=== PATIENT | male | born 1970 | race Caucasian/White ===

== ENCOUNTER → 2016-04-02 | Outpatient (REF) | payer BC, OTHER ==
[~2016-04-02] MED LIST: DOXY150C PO; MOTR200T44 PO; TYLE325T5 PO; ZOFR4TAB3 PO; ZOFRAN SL
== END ==
LOC: M LAB REF 21:07 → M SFHCADAM 21:07
PROVIDERS: ATTEND Family Medicine
DX: I10 Essential (primary) hypertension (principal)

== ENCOUNTER → 2016-06-12 | Outpatient (REF) | payer OTHER ==
[2016-06-12 21:06] LABS: ALBUMIN 3.9 GM/DL (3.2-5.2); ALBUMIN/GLOBULIN RATIO 1.11 (1.00-1.93); ALKALINE PHOSPHATASE 117 U/L (45-117); ALT/SGPT 75 U/L (12-78); ANION GAP 6 MEQ/L (8-16); AST/SGOT 45 U/L (15-37); BILIRUBIN,TOTAL 0.3 MG/DL (0.2-1.0); BLOOD UREA NITROGEN 12 MG/DL (7-18); CALCIUM LEVEL 8.5 MG/DL (8.5-10.1); CARBON DIOXIDE LEVEL 32 MEQ/L (21-32); CHLORIDE LEVEL 103 MEQ/L (98-107); CHOLESTEROL LEVEL 166 MG/DL (<200); CREATININE FOR GFR 1.08 MG/DL (0.70-1.30); GLOMERULAR FILTRATION RATE > 60.0 (>60); GLUCOSE, FASTING 94 MG/DL (70-105); POTASSIUM SERUM 4.4 MEQ/L (3.5-5.1); SODIUM LEVEL 141 MEQ/L (136-145); TOTAL PROTEIN 7.4 GM/DL (6.4-8.2); TRIGLYCERIDES LEVEL 498 MG/DL (<150)
== END ==
LOC: M SFHCADAM 13:43
PROVIDERS: ATTEND Family Medicine
DX: I10 Essential (primary) hypertension (principal); E66.9 Obesity, unspecified; R39.11 Hesitancy of micturition

== ENCOUNTER 2016-07-11 18:35 | Emergency (ER) | payer BC, OTHER ==
[~2016-07-11] VITALS: Ht 180.3 cm; Wt 117.0 kg
[2016-07-11 18:37] VITALS: BP 140/90
[2016-07-11] MEDS ORDERED: LISI30TA4 PO (18:46)
[2016-07-11] MEDS ORDERED: VALI5TAB PO (19:39)
[2016-07-11] MEDS ORDERED: NAPR500T PO (19:39)
== END 2016-07-11 19:56 | disposition home or self-care (01) ==
LOC: M ED 19:32
DX: S39.012A Strain of muscle, fascia and tendon of lower back, initial encounter (principal); X50.9XXA Other and unspecified overexertion or strenuous movements or postures, initial encounter; Y92.89 Other specified places as the place of occurrence of the external cause; Y93.H9 Activity, other involving exterior property and land maintenance, building and construction; Y99.0 Civilian activity done for income or pay; I10 Essential (primary) hypertension; F17.210 Nicotine dependence, cigarettes, uncomplicated; Z79.899 Other long term (current) drug therapy

== ENCOUNTER 2016-08-29 11:24 | Emergency (ER) | payer OTHER, BC ==
[~2016-08-29] VITALS: Ht 180.3 cm; Wt 114.1 kg
[~2016-08-29 11:24] MED LIST changes: +LISI30TA4 PO; +NAPR500T PO; +VALI5TAB PO
[2016-08-29] MEDS ORDERED: KETOROLAC 60 MG/2 ML VIAL (J1885) IM ONE (13:15)
--- NOTE | 2016-08-29 14:02 | REP ---
LUMBAR SPINE SERIES: Five views. HISTORY: Pain. FINDINGS: Five views of the lumbar spine show preserved vertebral body heights and normal alignment. There is degenerative disc narrowing and spur formation at L4-5 with a vacuum phenomenon consistent with moderate degenerative disc disease. Mild discogenic spurring and disc space narrowing is seen at L3-4. No fracture or collapse is seen. There is no evidence of spondylolysis or spondylolisthesis. There is some facet hypertrophy at L4-5 and L5-S1. Sacrum and SI joints are intact. Psoas margins are symmetric. IMPRESSION: Degenerative disc and facet changes at L4-5, L5-S1 and to some degree at L3-4. No acute bony abnormality. Signed by Marcelino Dockery MD 08/29/2016 02:07 P
[2016-08-29 14:31] VITALS: BP 180/100
[2016-08-29] MEDS ORDERED: CYCL10TA PO (14:37)
[2016-08-29] MEDS ORDERED: MEDR4PAK PO (14:37)
== END 2016-08-29 14:53 | disposition home or self-care (01) ==
LOC: M ED 11:24
DX: M51.36 Other intervertebral disc degeneration, lumbar region (principal); S39.012A Strain of muscle, fascia and tendon of lower back, initial encounter; I10 Essential (primary) hypertension; X58.XXXA Exposure to other specified factors, initial encounter; Y92.9 Unspecified place or not applicable; Y99.9 Unspecified external cause status; Y93.9 Activity, unspecified; Z79.899 Other long term (current) drug therapy
CPT/HCPCS: 72110; 96372; 99282; J1885; J3360

== ENCOUNTER → 2016-09-06 | Outpatient (CLI) | payer BC, OTHER ==
[~2016-09-06] MED LIST changes: +CYCL10TA PO; +MEDR4PAK PO
--- NOTE | 2016-09-06 14:08 | REP ---
Renal ultrasound: The kidneys are normal size. The right kidney measures 13.7 x 6.2 x 6.0 cm. Left kidney measures 13.8 4.8 x 5.5 cm. Renal cortical echogenicity is normal bilaterally. There is no hydronephrosis on the right on the left. There are no renal calculi, masses or cysts. 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 Bladder ultrasound: No bladder wall polyps or masses are identified. Balloon Impression: Essentially negative renal ultrasound. 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 Signed by Oj Wan MD 09/06/2016 02:00 P
== END ==
LOC: M RAD 13:30
PROVIDERS: ATTEND Family Medicine
DX: R80.9 Proteinuria, unspecified (principal)

== ENCOUNTER → 2016-10-18 | Outpatient (REF) | payer OTHER ==
[2016-10-18 15:00] LABS: INR 0.94
== END ==
LOC: M LABDRWAD 14:09
PROVIDERS: ATTEND Physical Medicine & Rehabilitation
DX: Z01.812 Encounter for preprocedural laboratory examination (principal)

== ENCOUNTER → 2016-12-13 | Outpatient (REF) | payer OTHER ==
[2016-12-13 14:47] LABS: BLOOD UREA NITROGEN 14 MG/DL (7-18); CREATININE FOR GFR 1.13 MG/DL (0.70-1.30); GLOMERULAR FILTRATION RATE > 60.0 (>60)
== END ==
LOC: M LAB REF 13:12
PROVIDERS: ATTEND Physical Medicine & Rehabilitation
DX: M48.061 Spinal stenosis, lumbar region without neurogenic claudication (principal)

== ENCOUNTER 2019-10-16 14:38 | Emergency (ER) | payer OTHER ==
[~2019-10-16] VITALS: Ht 180.3 cm; Wt 120.6 kg
[~2019-10-16 14:38] MED LIST changes: +CYCL-707 PO; -CYCL10TA PO; +NAPR-837 PO; -NAPR500T PO; +ZOFR4TAB14 PO; -ZOFR4TAB3 PO
[2019-10-16] MEDS ORDERED: METF500T13 (16:22)
[2019-10-16] MEDS ORDERED: FURO20TA2 (16:22)
[2019-10-16 16:53] LABS: BASO # 0.1 10^3/uL (0.0-0.2); BASO % 0.4 % (0.0-1.0); EOS # 0.4 10^3/uL (0.0-0.5); EOS % 3.1 % (0.0-3.0); HEMATOCRIT 43.3 % (42.0-52.0); HEMOGLOBIN 14.3 g/dl (13.5-17.5); LYMPH # 2.9 10^3/uL (1.5-5.0); MEAN CORPUSCULAR VOLUME 90.8 fl (80.0-96.0); MONO # 1.2 10^3/uL (0.0-0.8); MONO % 9.5 % (0.0-5.0); NEUTROPHILS # 8.1 10^3/uL (1.5-8.5); NEUTROPHILS % 63.5 % (36.0-66.0); PLATELET COUNT, AUTOMATED 193 10^3/uL (150-450); RED BLOOD COUNT 4.77 10^6/uL (4.30-6.10); WHITE BLOOD COUNT 12.8 10^3/uL (4.0-10.0)
[2019-10-16 17:24] LABS: BLOOD UREA NITROGEN 12 MG/DL (7-18); CALCIUM LEVEL 8.8 MG/DL (8.5-10.1); CARBON DIOXIDE LEVEL 31 MEQ/L (21-32); CHLORIDE LEVEL 102 MEQ/L (98-107); GLOMERULAR FILTRATION RATE > 60.0 (>60); GLUCOSE, FASTING 99 MG/DL (70-100); POTASSIUM SERUM 3.9 MEQ/L (3.5-5.1); SODIUM LEVEL 138 MEQ/L (136-145)
[2019-10-16 17:46] LABS: ERYTHROCYTE SEDIMENTATION RATE 48 mm/hr (0-15)
--- NOTE | 2019-10-16 18:21 | REPVR ---
PROCEDURE INFORMATION: Exam: US Duplex Right Lower Extremity Veins, Limited Exam date and time: 10/16/2019 6:00 PM Age: 49 years old Clinical indication: Pain; Swelling (edema) of limb; Lower extremity, right; Leg, upper and leg, lower; Additional info: Redness, swelling, tenderness R/O dvt TECHNIQUE: Imaging protocol: Real-time Duplex ultrasound of the Right Lower Extremity with 2-D wills scale, color Doppler flow and spectral waveform analysis with image documentation. Limited exam was focused on the right lower extremity veins. COMPARISON: No relevant prior studies available. FINDINGS: Right deep veins: Unremarkable. The common femoral, femoral and popliteal veins are patent without thrombus. Normal Doppler waveforms. Normal compressibility and/or augmentation response. Right superficial veins: Unremarkable. Saphenofemoral junction is patent without thrombus. Soft tissues: Unremarkable. IMPRESSION: No evidence of deep vein thrombosis in the right lower extremity. Electronically signed by: Diogenes Damon On 10/16/2019 18:20:28 PM
[2019-10-16 18:25] VITALS: BP 132/83
[2019-10-16] MEDS ORDERED: IBUPROFEN 800 MG TAB PO ONE (18:30)
[2019-10-16] MEDS ORDERED: CEPHALEXIN 500 MG CAP PO ONE (18:45)
[2019-10-16] MEDS ORDERED: KEFL500C17 PO (18:48)
== END 2019-10-16 19:02 | disposition home or self-care (01) ==
LOC: M ED 14:38
DX: L03.115 Cellulitis of right lower limb (principal); E11.9 Type 2 diabetes mellitus without complications; Z79.1 Long term (current) use of non-steroidal anti-inflammatories (NSAID); Z79.84 Long term (current) use of oral hypoglycemic drugs; Z79.899 Other long term (current) drug therapy; I10 Essential (primary) hypertension; F41.9 Anxiety disorder, unspecified; F17.200 Nicotine dependence, unspecified, uncomplicated

== ENCOUNTER 2020-05-03 21:23 | Inpatient (IN) | payer OTHER ==
[~2020-05-03] VITALS: Ht 180.3 cm; Wt 129.8 kg
[~2020-05-03 21:23] MED LIST changes: +FURO20TA2; +KEFL500C17 PO; +METF500T13
[2020-05-03] MEDS ORDERED: BUPR1FIL6 SL (22:11)
[2020-05-03] MEDS ORDERED: ACETAMINOPHEN TAB 650MG DOSE (2X325MG) PO ONE (22:20)
[2020-05-03] MEDS ORDERED: CEFEPIME HCL 2 GM in D5W MINI-BAG PLUS 50 ML IV ONE (22:20)
[2020-05-03 22:27] LABS: BASO # 0.1 10^3/uL (0.0-0.2); BASO % 0.3 % (0.0-1.0); EOS # 0.1 10^3/uL (0.0-0.5); EOS % 0.5 % (0.0-3.0); HEMATOCRIT 45.4 % (42.0-52.0); LYMPH # 1.2 10^3/uL (1.5-5.0); LYMPH % 6.3 % (24.0-44.0); MEAN CORPUSCULAR HEMOGLOBIN 29.4 pg (27.0-33.0); MONO # 1.4 10^3/uL (0.0-0.8); MONO % 7.4 % (2.0-8.0); NEUTROPHILS # 15.8 10^3/uL (1.5-8.5); NEUTROPHILS % 84.7 % (36.0-66.0); PLATELET COUNT, AUTOMATED 199 10^3/uL (150-450); WHITE BLOOD COUNT 18.6 10^3/uL (4.0-10.0)
[2020-05-03 22:55] LABS: ALBUMIN 3.9 GM/DL (3.2-5.2); BILIRUBIN,DIRECT 0.2 MG/DL (0.0-0.2); BILIRUBIN,TOTAL 0.8 MG/DL (0.2-1.0); C REACTIVE PROTEIN QUANTITATIV 1.04 MG/DL (0.00-0.30); CALCIUM LEVEL 9.1 MG/DL (8.5-10.1); CREATININE FOR GFR 1.35 MG/DL (0.70-1.30); GLOMERULAR FILTRATION RATE 59.8 (>60); POTASSIUM SERUM 4.5 MEQ/L (3.5-5.1); TOTAL PROTEIN 7.9 GM/DL (6.4-8.2)
[2020-05-03] MEDS ORDERED: FURO40TA2 PO (23:01)
[2020-05-03] MEDS ORDERED: LISI40TA4 PO (23:01)
[2020-05-03] MEDS ORDERED: METF-838 PO (23:01)
[2020-05-03] MEDS ORDERED: PROP10TA56 PO (23:01)
[2020-05-03] MEDS ORDERED: SUBO8MIS SL (23:01)
[2020-05-03] MEDS ORDERED: SUBO4MIS SL (23:01)
[2020-05-03] MEDS ORDERED: HYDR-3363 PO (23:01)
--- NOTE | 2020-05-03 23:03 | REPVR ---
PROCEDURE INFORMATION: Exam: CT Head Without Contrast Exam date and time: 05/03/2020 10:42 PM Age: 49 years old Clinical indication: Altered mental status/memory loss TECHNIQUE: Imaging protocol: Computed tomography of the head without contrast. Radiation optimization: All CT scans at this facility use at least one of these dose optimization techniques: automated exposure control; mA and/or kV adjustment per patient size (includes targeted exams where dose is matched to clinical indication); or iterative reconstruction. COMPARISON: No relevant prior studies available. FINDINGS: Limitations: Patient motion. Brain: No definite acute intracranial hemorrhage. No midline shift or intracranial mass effect. No cerebral edema. Cerebral ventricles: No hydrocephalus. Bones/joints: Unremarkable. No acute fracture. Paranasal sinuses: Visualized sinuses are unremarkable. No fluid levels. Mastoid air cells: Opacification of the right mastoid air cells. Soft tissues: Unremarkable. IMPRESSION: Patient motion without definite acute intracranial abnormality. Electronically signed by: Reinaldo Snyder On 05/03/2020 23:03:39 PM
--- NOTE | 2020-05-03 23:35 | REPVR ---
PROCEDURE INFORMATION: Exam: XR Chest Exam date and time: 05/03/2020 11:22 PM Age: 49 years old Clinical indication: Fever TECHNIQUE: Imaging protocol: XR of the chest Views: 1 view. COMPARISON: CR Chest, 1 view 08/25/2013 10:32 AM FINDINGS: Lungs: Unremarkable. No consolidation. Pleural spaces: Unremarkable. No pleural effusion. No pneumothorax. Heart/Mediastinum: Unremarkable. No cardiomegaly. Bones/joints: Unremarkable. IMPRESSION: No acute findings. Electronically signed by: Reinaldo Snyder On 05/03/2020 23:34:55 PM
[2020-05-03] MEDS ORDERED: LR 1,000 ML IV ONE (23:50)
[2020-05-03] MEDS ORDERED: MAALOX 30 ML SUSP *UDC PO PRN (23:50)
[2020-05-03] MEDS ORDERED: DEXTROSE 50% 50 ML SYRINGE IV PRN (23:50)
[2020-05-03] MEDS ORDERED: MOM 30ML SUSPENSION UDC PO PRN (23:50)
[2020-05-03] MEDS ORDERED: GLUCAGON INJ 1MG VIAL SC PRN (23:50)
[2020-05-03] MEDS ORDERED: GLUCOSE 4GM CHEW TABLET PO PRN (23:50)
[2020-05-03] MEDS ORDERED: VANCOMYCIN HCL 1,000 MG, VIAL MATE ADAPTER 1 EACH in NS 250 ML IV SCH (23:50)
--- NOTE | 2020-05-03 23:57 | HPEPDOC ---
[facility] Medical History & Physical Date of Admission May 03, 2020 Date of Service: May 03, 2020 Primary Care Physician: JANICE ORTEZ DO Attending Physician: MARY GRACE PONCE MD History and Physical TIME OF SERVICE: 1157 pm CHIEF COMPLAINT: malaise HISTORY OF PRESENT ILLNESS: A few hours prior to arrival in the ER this 49 yr old M suddenly felt light headed and tired. Thereafter he became short of breath and developed aching 8/10 in severity right lower leg tenderness, redness and swelling that has spread quickly. He also had fevers, chills and vomited. He had similar symptoms when he was diagnosed with cellulitis therefore he decided to come to the hospital for evaluation. He denies having any cuts or trauma affecting his RLE. According to his the patient was transiently confused but this resolved after he received meds in the ER. 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 HOME MEDICATIONS: Please see below. PHYSICAL EXAMINATION: Vital Signs Date Time Temp Pulse Resp B/P (MAP) Pulse Ox O2 Delivery O2 Flow Rate FiO2 05/03/20 21:24 100.2 130 24 119/73 (88) 93 Room Air GENERAL APPEARANCE: well nourished and developed/ listless HEENT: EOMI CARDIOVASCULAR: tachycardic / NMRG LUNGS: CTAB on RA ABDOMEN: obese MUSCULOSKELETAL: LNIDA x 4 INTEGUMENT: the anterior part of the mid-right lower leg is has an area that is very red / he is not diaphoretic NEUROLOGICAL: speech not dysarthric PSYCHIATRIC: listless / able to answer questions appropriately and follow commands LABORATORY DATA: 05/03/20 22:18 Immature Granulocyte % (Auto) 0.8, Neutrophils (%) (Auto) 84.7H, Lymphocytes (%) (Auto) 6.3L, Monocytes (%) (Auto) 7.4, Eosinophils (%) (Auto) 0.5, Basophils (%) (Auto) 0.3, Neutrophils # (Auto) 15.8H, Lymphocytes # (Auto) 1.2L, Monocytes # (Auto) 1.4H, Eosinophils # (Auto) 0.1, Basophils # (Auto) 0.1, Nucleated Red Blo od Cells % (auto) 0.0, Anion Gap 4L, Glomerular Filtration Rate 59.8L, Lactic Acid Level 1.7, Calcium Level 9.1, Total Bilirubin 0.8, Direct Bilirubin 0.2, Aspartate Amino Transf (AST/SGOT) 74H, Alanine Aminotransferase (ALT/SGPT) 92H, Alkaline Phosphatase 89, C-Reactive Protein, Quantitative 1.04H, Total Protein 7.9, Albumin 3.9, Albumin/Globulin Ratio 1.0, Amylase Level 56 05/03/20 22:24: Urine Color KIMBER, Urine Appearance HAZY, Urine pH 5.0, Urine Specific Vill[place] 1.026, Urine Protein 1+H, Urine Glucose (UA) NEGATIVE, Urine Ketones TRACEH, Urine Blood NEGATIVE, Urine Nitrite NEGATIVE, Urine Bilirubin 1+H, Urine Urobilinogen 2.0H, Urine Leukocyte Esterase NEGATIVE, Urine WBC (Auto) 4H, Urine RBC (Auto) 3, Urine Hyaline Casts (Auto) 4, Urine Bacteria (Auto) NEGATIVE, Urine Squamous Epithelial Cells 0, Urine Transitional Epithelial Cells <1, Urine Mucus (Auto) MODERATE, Urine Sperm (Auto) SMALLH IMAGING: CT head IMPRESSION: Patient motion without definite acute intracranial abnorma lity. Chest xray IMPRESSION: No acute findings. MICROBIOLOGY: Blood cx pending / Respiratory panel neg ASSESSMENT: is a 49 yr old w a hx of NIDDM, HTN, DLP, and obesity who will be admitted for management of sepsis 2/2 RLE Cellulitis and metabolic encephalopathy. PLAN: 1 Sepsis 2/2 RLE Cellulitis He has the following SIRS criteria: Temp >101 / HR >90 / / WBC >12 / RR > 20 His qSOFA score based on the presence of AMS and tachypnea is 2 = high risk His ESR is 17 & lactic acid is 1.7 ALT-70 Score to diagnose LE Cellulitis = 5 points = appropriate to treat for cellulitis His risk factors for cellulitis are obesity and toe nail fungus Plan: admit to medical floor / telemetry / target MAP at of least 65 to 70 / f/u Is and Os with target UOP of at least 0.5 ml/kg/H / f/u [id number] w target serum glucose 140-180 while acutely ill / c/w Cefazolin to cover MSSA and add Vancomycin to cover MRSA and beta hemolytic strep / switch to lactate ringers /f/u blood cx / f/u CPK, if elevated pt may need CT or MRI of limb to rule out necrotizing fasciitis/ Acetaminophen PRN for fever & pain / can f/u w Podiatry or PCP to start treatment for onychomycosis on an out pt basis 2 Metabolic Encephalopathy Likely 2/2 infection and possibly home meds Plan: frequent neurochecks /hold naloxone and Hydroxyzine / treat infection 3 PHAN Likely pre-renal due to dehydration from infection and vomiting The UA was positive for hyaline casts Plan: monitor UOP / IVF / f/u Ulytes for FEUrea / f/u renal US / hold Lasix, Lisinopril and metformin 4 Hepatocellular pattern of transaminitis Bc the LFTs are in the 100s this is likely 2/2 OROSCO Plan: trend LFTs, f/u liver US / f/u Drug screen 5. NIDDM Plan: diabetic diet / f/u accuchecks / / hypoglycemia protocol / sliding scale insulin / hold oral anti-glycemicS / f/u A1C (target A1C is <7 to 6.5% ) 6 Chronic HTN His BP is trending down Plan: hold Lisinopril and Lasix bc of PHAN / if his BP trends upwards the day time team may consider starting amlodipine until his PHAN resolves 7. Tobacco abuse Plan: Declined nicotine patch / smoking cessation education 8. Class 1 obesity He has co-existing HTN and DM which complicate his care Since his BMI s >35 w DM he is a candidate for bariatric surgery Plan: the patient can f/u w his PCP for sleep apnea screening, device sales consultant consult, to discuss staring Saxenda, which is indicated in patients with a BMI >27 with co-existing DM, HTN or dyslipidemia to help with weight control as an adjunct to exercise & referral to a Bariatric Surgeon / recommend cardiovascular exercise for 40 min 4-5 days a week DVT px w Lovenox Dispo: home after at least 2 midnights stay Home Medications Scheduled Buprenorphine HCl/Naloxone HCl (Suboxone 8 mg-2 mg Sl Film) 1 Each Film, 1 STRIP SL DAILY Buprenorphine HCl/Naloxone HCl (Suboxone 4 mg-1 mg Sl Film) 1 Each Film, 1 STRIP SL QPM TAKES AT 1700 Furosemide (Furosemide) 40 Mg Tablet, 40 MG PO DAILY Lisinopril (Lisinopril) 40 Mg Tablet, 40 MG PO DAILY Metformin HCl (Metformin HCl ER) 500 Mg Tab.er.24h, 500 MG PO BIDWM Propranolol HCl (Propranolol HCl) 10 Mg Tablet, 10 MG PO BID PATIENT STATES THAT HIS DOSE WAS INCREASED TO 20MG BID BUT NO DOCUMENTATION TO SUPPORT. Scheduled PRN Hydroxyzine HCl (Hydroxyzine HCl) 25 Mg Tablet, 25 MG PO Q4H PRN for ANXIETY Allergies Coded Allergies: No Known Allergies (Unverified , 07/11/16) A-FIB/CHADSVASC A-FIB History Current/History of A-Fib/PAF?: No Current PO Anticoag Therapy: No MARY GRACE PONCE MD May 03, 2020 23:57
[2020-05-04 00:05] LABS: RSV AMPLIFICATION NEGATIVE (NEGATIVE)
[2020-05-04 00:27] LABS: ERYTHROCYTE SEDIMENTATION RATE 17 mm/hr (0-15)
[2020-05-04] MEDS ORDERED: ceFAZolin SOD 1 GM in D5W MINI-BAG PLUS 50 ML IV SCH ×2 (01:00→03:00)
[2020-05-04 01:10] VITALS: BP 142/82
[2020-05-04] MEDS ORDERED: VANCOMYCIN HCL 1,000 MG, VIAL MATE ADAPTER 1 EACH in NS 250 ML IV ONE ×6 (02:00)
[2020-05-04 05:59] LABS: HEMOGLOBIN 13.4 g/dl (13.5-17.5); MEAN CORPUSCULAR HEMOGLOBIN 29.4 pg (27.0-33.0); MEAN CORPUSCULAR HGB CONC 32.7 g/dl (32.0-36.5); MEAN CORPUSCULAR VOLUME 89.9 fl (80.0-96.0); PLATELET COUNT, AUTOMATED 183 10^3/uL (150-450); RED BLOOD COUNT 4.56 10^6/uL (4.30-6.10)
[2020-05-04 06:00] VITALS: BP 105/80
[2020-05-04] MEDS: ceFAZolin SOD 1 GM in D5W MINI-BAG PLUS 50 ML IV SCH ×3 (06:02→21:35)
[2020-05-04] MEDS: HumaLOG INSULIN (NovoLOG) PER UNIT SC SCH ×4 (06:05→17:23)
[2020-05-04 06:16] LABS: HEMOGLOBIN A1c 5.9 %
[2020-05-04 06:21] LABS: ALBUMIN 3.3 GM/DL (3.2-5.2); ALT/SGPT 74 U/L (12-78); BLOOD UREA NITROGEN 22 MG/DL (7-18); C REACTIVE PROTEIN QUANTITATIV 5.87 MG/DL (0.00-0.30); CALCIUM LEVEL 8.8 MG/DL (8.5-10.1); CARBON DIOXIDE LEVEL 30 MEQ/L (21-32); CHLORIDE LEVEL 102 MEQ/L (98-107); CREATININE FOR GFR 1.76 MG/DL (0.70-1.30); GLUCOSE, FASTING 167 MG/DL (70-100); POTASSIUM SERUM 4.6 MEQ/L (3.5-5.1); SODIUM LEVEL 135 MEQ/L (136-145); TOTAL PROTEIN 6.7 GM/DL (6.4-8.2)
[2020-05-04] MEDS: LR 1,000 ML IV SCH ×4 (06:50→23:53)
[2020-05-04 07:08] LABS: CPK CREATINE PHOSPHOKINASE 43 U/L (39-308)
--- NOTE | 2020-05-04 07:51 | REP ---
INDICATION: RLE cellulitis r/o foreign body COMPARISON: None. TECHNIQUE: AP and lateral views of the right tibia/fibula. FINDINGS: The osseous structures and joint spaces are intact and normal. There is no evidence for acute fracture or dislocation. Surrounding soft tissues are unremarkable. No subcutaneous emphysema or radiodense foreign body. IMPRESSION: Essentially normal radiographic evaluation. No subcutaneous emphysema or foreign body identified. <Electronically signed by Michael Virk > 05/04/20 0779
[2020-05-04] MEDS: PROPRANOLOL 10 MG TAB PO SCH ×2 (08:07→21:35)
[2020-05-04] MEDS ORDERED: FUROSEMIDE 40 MG TAB PO SCH (09:00)
[2020-05-04] MEDS: ENOXAPARIN 40MG/0.4ML SYRINGE (J1650 PER 10MG) SC SCH (09:57)
[2020-05-04] MEDS ORDERED: VANCOMYCIN HCL 750 MG, VIAL MATE ADAPTER 1 EACH in NS 250 ML IV SCH (10:00)
[2020-05-04] MEDS ORDERED: VANCOMYCIN HCL 1,000 MG, VIAL MATE ADAPTER 1 EACH in NS 250 ML IV SCH ×2 (10:00→11:00)
--- NOTE | 2020-05-04 10:00 | ECGEPIP ---
[facility] - ED Test Date: 2020-05-03 Pat Name: SHILPA BLACK Department: Room: [place] [address] Gender: Male Guest Relations Associate: ZAHEER : 1970 Requested By: HATTIE Hoffman Order Number: [id number] Reading MD: Fernando Mandel Measurements Intervals [place] Rate: 113 P: 29 DE: 200 QRS: 6 QRSD: 92 T: 23 QT: 320 QTc: 438 Interpretive Statements MULTIFOCAL ATRIAL TACHYCARDIA Inferior infarct , age undetermined NO PRIORS FOR COMPARISON Electronically Signed on 05-04-2020 10:00:13 EDT by Fernando Mandel
[2020-05-04] MEDS: BUPRENORPHINE/NALOXONE 8-2MG SUBLINGUAL TABLET(SUBOXONE) SL SCH (11:10)
[2020-05-04 11:22] LABS: HEPATITIS B SURFACE ANTIGEN NEGATIVE (NEGATIVE)
[2020-05-04 11:51] LABS: HEPATITIS B CORE ANTIBODY IGM NEGATIVE (NEGATIVE); HEPATITIS C VIRUS ABY INDEX < 0.0 INDEX (<0.8)
[2020-05-04 11:53] LABS: HEPATITIS A ANTIBODY IGM NEGATIVE (NEGATIVE)
--- NOTE | 2020-05-04 12:18 | IPNPDOC ---
Text Note Date of Service The patient was seen on 05/04/20. NOTE Subjective: No acute events overnight. Pt states that he is feeling much better than he did at the time of admission. Admits to RLE redness, pain, and swelling, although better than yesterday. He c/o dry mouth and having hunger pains due to being on NPO status. Admits to nausea and chills this morning. Denies vomiting, abd pain, visual changes, headache, constipation, diarrhea, or urinary sx. Pt states that he has had cellulitis to RLE three months ago that resolved with "500 mg of an antibiotic I don't remember the name of". He was not admitted at that time. Denies any recent changes in medications. Pt states that his AMS yesterday lasted briefly and has since resolved. Objective: VITALS: See below. GENERAL: Pt is laying in bed. No acute distress. HEENT: Dry mucous membranes. EOMI. Conjunctiva and lids normal. CARDIOVASCULAR: Regular rate and rhythm. No murmurs, rubs, or gallops appreciated. RESPIRATORY: Clear to auscultation bilaterally. Good air movement. No wheezes, rales, or rhonchi noted. ABDOMEN: Tenderness to palpation to RUQ. No guarding or rebound. Normoactive bowel sounds to all four quadrants. EXTREMITY: No pitting edema noted to BLE. SKIN: Area of erythema, tenderness, and warmth to anterior R lower leg. Erythema has not spread beyond the area marked with marker and appears to have decreased slightly. NEURO: No focal neurological deficits appreciated. Pt is able to answer my questions without difficulty and with clear speech. Assessment/Plan: A few hours prior to arrival in the ER this 49 yr old M with PMH of NIDDM, HTN, DLP, and obesity who suddenly felt light headed and tired. Thereafter he became short of breath and developed aching 8/10 in severity right lower leg tenderness, redness and swelling that has spread quickly. He also had fevers, chills and vomited. He had similar symptoms when he was diagnosed with cellulitis therefore he decided to come to the hospital for evaluation. He denies having any cuts or trauma affecting his RLE. According to his the patient was transiently confused but this resolved after he received meds in the ER. He was admitted for management of sepsis 2/2 RLE cellulitis and metabolic encephalopathy. #Sepsis 2/2 RLE cellulitis vs erysipelas - The following SIRS criteria are met at the time of admission: temp>101, HR>90, WBC>12, RR>20. - At time of admission qSOFA score based on the presence of AMS and tachypnea is 2 = high risk. - ESR elevated at 17 yesterday. - Lactic acid 1.7 yesterday. - Will trend CRP every 48 hrs. - His risk factors for cellulitis are obesity, toe nail fungus, and NIDDM. - Will continue to monitor labs. - Cefazolin and Vancomycin ordered. - Blood cultures pending. - Acetaminophen PRN for fever and pain. - Will have pt f/u with PCP or podiatry regarding onychomycosis on an out pt basis. - MRSA PCR screen pending. Will d/c vancomycin if MRSA negative. #RLE Cellulitis vs erysipelas - Pt has hx of cellulitis to RLE three months ago that completely resolved after abx therapy. - MRSA PCR screen pending. Will d/c vancomycin if MRSA negative. - Blood cultures pending. - Will continue to monitor borders of erythema. #PHAN - Likely pre-renal in the setting of dehydration while on Furosemide 40 mg, Lisinopril 40 mg, and Metformin. - UA positive for hyaline casts. - Pt denies any recent changes in medications that may be causing PHAN. - Renal US ordered. - Will monitor Is&Os. - Holding Lasix, lisinopril, and metformin and will avoid other renal toxic drugs. - Continue lactated ringers. - Urine sodium and creatinine ordered. - Will continue to monitor renal functions and electrolytes. #Metabolic encephalopathy - Possibly 2/2 infection. - Will hold Hydroxyzine due to possible cause of AMS. - Frequent neuro checks. - Will continue to treat cellulitis - Resolved. Mentation nl today. #Hepatocellular pattern of transaminitis - LFTs are in the 100s. - Pt BMI is 37.9. - Transaminitis likely 2/2 OROSCO. - Will continue to trend LFTs. - Urine tox pending. #NIDDM - Pt placed on consistent carb diet. - Sliding scale insulin with hypoglycemic parameters in place. - Hgb A1c 5.9. #HTN - BP currently 105/80. - Will continue to monitor BP. - Holding lisinopril and lasix due to PHAN. - If BP trends upward may consider amlodipine. #Tobacco abuse - Declined nicotine patch. - Smoking cessation education. #Class 1 obesity - Pt BMI 37.9. Obesity complicating care. DVT prophylaxis: Lovenox 40 mg SC Daily. Disposition: Pt has cellulitis vs erysipelas to RLE with elevated WBC and fever. Also has unexplained PHAN that is currently being further worked up. Discharge pending clinical improvement. VS,Fishbone, I+O VS, Fishbone, I+O Laboratory Tests 05/03/20 22:18 05/04/20 05:30 Vital Signs Date Time Temp Pulse Resp B/P (MAP) Pulse Ox O2 Delivery O2 Flow Rate FiO2 05/04/20 06:00 99.8 84 20 105/80 (88) 93 Room Air I&O- Last 24 Hours up to 6 AM 05/04/20 06:00 Intake Total 1770 ml Output Total 0 ml Balance 1770 ml GME ATTESTATION GME ATTESTATION My faculty preceptor for this patient encounter was physically present during the encounter and was fully available. All aspects of the patient interview, examination, medical decision making process, and medical care plan development were reviewed and approved by the faculty preceptor. The faculty preceptor is aware and concurs with the plan as stated in the body of this note and will attest to such by his/her cosignature. ATTENDING NOTE I, Ravi Gusman MD, have independently examined this patient and performed my own physical exam, as well as reviewed the documentation and edited where necessary. I have discussed in detail with the resident / student the findings and plan of treatment as documented by the resident / student and edited their note. I agree with their findings and treatment plan and have edited their documentation. Ana MENON-3 May 04, 2020 12:18 RAVI GUSMAN MD May 04, 2020 14:50
--- NOTE | 2020-05-04 13:06 | REP ---
INDICATION: PHAN. COMPARISON: Comparison sonography is from a September 06, 2016.. TECHNIQUE: Urinary tract sonography. FINDINGS: Scanning at the level of the urinary bladder shows no abnormality. Renal cortical echogenicity pattern is normal bilaterally and contours are smooth. There is no evidence of hydronephrosis, cyst, mass, or calculus in either kidney. The right kidney measures 12.9 x 5.5 x 5.3 cm. Left renal dimensions are 13.5 x 5.2 x 6.1 cm. 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 No hydronephrosis. IMPRESSION: Normal urinary tract sonography. <Electronically signed by Cristobal Dockery > 05/04/20 0500
[2020-05-04] MEDS: NICOTINE 21MG/24HR 1 EA TRANSDERMAL TD PRN (15:35)
[2020-05-04] MEDS: BUPRENORPHINE/NALOXONE 2-0.5MG SUBLINGUAL TABLET(SUBOXONE) SL SCH (17:23)
[2020-05-04] MEDS: ACETAMINOPHEN TAB 650MG DOSE (2X325MG) PO PRN (21:36)
[2020-05-04 22:00] VITALS: BP 150/90
--- NOTE | 2020-05-04 22:03 | IPNPDOC ---
Text Note Date of Service The patient was seen on 05/04/20. NOTE Time 9:30pm Per d/w LOW [place] the patient's leg is more painful and swollen. PE: pt is more alert than yesterday / RLE is more edematous than yesterday and the red area is spreading #RLE Swelling / Cellulitis Plan: c/w current abx/ f/u US to r/o DVT VS,Fishbone, I+O VS, Fishbone, I+O Laboratory Tests 05/03/20 22:18 05/04/20 05:30 Vital Signs Date Time Temp Pulse Resp B/P (MAP) Pulse Ox O2 Delivery O2 Flow Rate FiO2 05/04/20 21:35 88 156/90 05/04/20 21:07 99.5 05/04/20 06:00 20 93 Room Air I&O- Last 24 Hours up to 6 AM 05/04/20 06:00 Intake Total 1770 ml Output Total 0 ml Balance 1770 ml MARY GRACE PONCE MD May 04, 2020 22:03
[2020-05-05 01:46] LABS: AMPHETAMINES LEVEL URINE NEGATIVE (NEGATIVE); BARBITURATES URINE NEGATIVE (NEGATIVE); BENZODIAZEPINES URINE NEGATIVE (NEGATIVE); CANNABINOIDS URINE NEGATIVE (NEGATIVE); COCAINE METABOLITE URINE NEGATIVE (NEGATIVE); METHADONE URINE NEGATIVE (NEGATIVE); OPIATES URINE NEGATIVE (NEGATIVE); PHENCYCLIDINE URINE NEGATIVE (NEGATIVE); SODIUM,RANDOM URINE 45 MEQ/L; UREA NITROGEN RANDOM URINE 1065 MG/DL
[2020-05-05 02:00] VITALS: BP 152/87
[2020-05-05] MEDS: LR 1,000 ML IV SCH ×2 (05:11→09:26)
[2020-05-05] MEDS: ceFAZolin SOD 1 GM in D5W MINI-BAG PLUS 50 ML IV SCH ×3 (05:12→22:01)
[2020-05-05] MEDS: ACETAMINOPHEN TAB 650MG DOSE (2X325MG) PO PRN ×2 (05:12→22:18)
[2020-05-05] MEDS ORDERED: IPRATROPIUM 0.5MG/ALBUTEROL 2.5MG INH SOL UD 3ML (DUONEB) NEB ONE (05:25)
[2020-05-05 06:00] VITALS: BP 168/90
[2020-05-05 06:20] LABS: BASO # 0.1 10^3/uL (0.0-0.2); BASO % 0.5 % (0.0-1.0); EOS # 0.2 10^3/uL (0.0-0.5); EOS % 1.2 % (0.0-3.0); HEMATOCRIT 38.5 % (42.0-52.0); HEMOGLOBIN 12.6 g/dl (13.5-17.5); LYMPH # 2.3 10^3/uL (1.5-5.0); LYMPH % 18.9 % (24.0-44.0); MEAN CORPUSCULAR HEMOGLOBIN 29.4 pg (27.0-33.0); MEAN CORPUSCULAR HGB CONC 32.7 g/dl (32.0-36.5); MEAN CORPUSCULAR VOLUME 89.7 fl (80.0-96.0); MONO # 1.1 10^3/uL (0.0-0.8); MONO % 9.2 % (2.0-8.0); NEUTROPHILS # 8.5 10^3/uL (1.5-8.5); NEUTROPHILS % 69.8 % (36.0-66.0); PLATELET COUNT, AUTOMATED 142 10^3/uL (150-450); RED BLOOD COUNT 4.29 10^6/uL (4.30-6.10); WHITE BLOOD COUNT 12.1 10^3/uL (4.0-10.0)
[2020-05-05 06:37] LABS: ALT/SGPT 51 U/L (12-78); BILIRUBIN,TOTAL 0.5 MG/DL (0.2-1.0); BLOOD UREA NITROGEN 15 MG/DL (7-18); CALCIUM LEVEL 8.3 MG/DL (8.5-10.1); CARBON DIOXIDE LEVEL 28 MEQ/L (21-32); CHLORIDE LEVEL 102 MEQ/L (98-107); GLOMERULAR FILTRATION RATE > 60.0 (>60); GLUCOSE, FASTING 91 MG/DL (70-100); POTASSIUM SERUM 4.1 MEQ/L (3.5-5.1); SODIUM LEVEL 136 MEQ/L (136-145); TOTAL PROTEIN 6.6 GM/DL (6.4-8.2)
[2020-05-05] MEDS: HumaLOG INSULIN (NovoLOG) PER UNIT SC SCH ×3 (07:30→18:00)
[2020-05-05] MEDS: BUPRENORPHINE/NALOXONE 8-2MG SUBLINGUAL TABLET(SUBOXONE) SL SCH (08:02)
[2020-05-05] MEDS: PROPRANOLOL 10 MG TAB PO SCH ×2 (08:02→20:41)
[2020-05-05] MEDS: ENOXAPARIN 40MG/0.4ML SYRINGE (J1650 PER 10MG) SC SCH (08:03)
[2020-05-05 08:59] LABS: C REACTIVE PROTEIN QUANTITATIV 9.31 MG/DL (0.00-0.30)
[2020-05-05] MEDS ORDERED: IPRATROPIUM 0.5MG/ALBUTEROL 2.5MG INH SOL UD 3ML (DUONEB) NEB PRN (10:55)
[2020-05-05] MEDS ORDERED: VANCOMYCIN HCL 1,000 MG, VIAL MATE ADAPTER 1 EACH in NS 250 ML IV ONE ×2 (11:00→12:00)
[2020-05-05] MEDS ORDERED: ISOVUE-370 76% 100ML VIAL As Ordered ONE (11:13)
[2020-05-05] MEDS ORDERED: MIRALAX *UNIT DOSE* 17GM PACKET PO PRN (12:20)
--- NOTE | 2020-05-05 12:21 | IPNPDOC ---
Date Seen The patient was seen on 05/05/20. Progress Note SUBJECTIVE: Patient was seen and examined this morning. He continues to have right leg pain although not worse from admission. He was noted to have increased redness on his right anterior catherine. Additionally the patient noted an episode of shortness of breath last night. He was given a duoneb which reportedly improved his symptoms. There were otherwise no adverse events reported OBJECTIVE PHYSICAL EXAMINATION: VITAL SIGNS: Please see below. GENERAL: Awake, alert, and oriented. Appears in no acute distress. Lying comfortably in bed. HEENT: Atraumatic, normocephalic. Eyes are nonicteric. Trachea is midline CARDIOVASCULAR: Normal S1, S2. Regular rate and rhythm. No clicks rubs or murmur s RESPIRATORY: some crackles in the right base and bilaterally diminished. Symmetric chest expansion. No wheezes, or rhonchi ABDOMINAL: Soft, nondistended. Nontender. Obese. Normoactive bowel sounds EXTREMITIES: Area of erythema of right anterior catherine. Increased erythema from previous examination. No calf swelling or pain. Skin is dry and cracked on bilateral lower extremities NEUROLOGICAL: No focal neurological deficits PSYCHOLOGICAL: Mood and affect appear appropriate LABORATORY DATA, IMAGING STUDIES, MICROBIOLOGY: Please see below. DVT prophylaxis ordered?: Lovenox ASSESSMENT AND PLAN: Patient is a 49 year old male with a past medical history significant for Diabetes mellitus type 2, chronic hypertension, dyslipidemia, and obesity who presented with right leg pain and altered mental status and found to have a right leg cellulitis and PHAN. PROBLEMS: 1. Sepsis 2/2 RLE cellulitis/erysipelas -WBC is downtrending. Patient has remained febrile. He is continued on IV fluids currently. Blood cultures negative currently. -Vancomycin was discontinued yesterday due to MRSA negative screen. However he has had increasing erythema and increasing CRP. Consider possible MRSA vs me thicillin resistant strep. Will restart vancomycin. Continue Ancef 2. RLE Cellulitis/Erysipelas -Right anterior catherine erythema consistent with cellulitis vs erysipelas. He does have dry cracked skin which could increase his risk. He may benefit from a lotion applied to his legs. -Currently continuing Ancef. Have added Vancomycin back given his worsening erythema and CRP. WBC is trending down. He does remain febrile. -CT lower extremity with IV contrast ordered to assess for worsening infec tion -Patient was noted to have increasing pain in his right lower extremity. This pain is in his anterior leg. A ultrasound was ordered to r/o DVT although this is unlikely as the pain is anterior and not surrounding the calf 3. Acute Kidney Injury -Patient presented with increased Cr. Prerenal in etiology. He had decreased oral intake in addition to taking furosemide, lisinopril and metformin. -Patient is continued on IV fluids. His Cr has improved to 0.9 today. Continuing to hold his home medications. He did receive a CT with IV contrast today and therefore anticipate that he may have a slight bump in his Cr tomorrow. Will continue IV fluids and encourage PO intake 4. Shortness of breath -Unclear what is causing his SOB. He states he gets episodes where he all of a sudden gets short of breath. Denies any feelings of palpitations. Last night he woke up feeling short of breath. He recieved a duoneb and his shortness of breath resolved. -Possible shortness of breath is related to receiving IV fluids. Will continue to monitor for now. Chest X-ray on admission was negative for any acute findings. 5. Metabolic Encephalopathy -On admission patient noted to be altered. likely secondary to infection and medications. Currently holding hydroxyzine -Mentation appears to be at baseline 6. Elevated transaminases -On admission there was slight elevation of transaminases. They have normalized. Likely secondary to Steatohepatitis. -Patient should follow-up outpatient with PCP 7. Type 2 Diabetes Mellitus -Consistent Carb diet -Sliding scale insulin with ACHS coverage -A1c is 5.9 8. Hypertension -Currently holding Lisinopril and lasix. -Have added one time dose of Norvasc this morning -Will continue to monitor 8. Tobacco Abuse -Nicotine patch daily prn 9. Obesity -Complicates care. 10. DVT prophylaxis -Lovenox DISPOSITION: Likely D/C in 24-48 hours. Pending clinical improvement. VS, I&O, 24H, [place] Vital Signs/I&O Vital Signs Date Time Temp Pulse Resp B/P (MAP) Pulse Ox O2 Delivery O2 Flow Rate FiO2 05/05/20 09:26 71 134/88 05/05/20 06:00 99.5 20 94 Room Air I&O- Last 24 Hours up to 6 AM 05/05/20 06:00 Intake Total 3330 ml Output Total 1150 ml Balance 2180 ml Laboratory Data 24H LABS Laboratory Tests 2 05/04/20 14:55: Methicillin-Resist S.aureus DNA PCR NOT DETECTED 05/04/20 16:23: Bedside Glucose (Misc Panel) 90 05/04/20 19:43: Bedside Glucose (Misc Panel) 111H 05/05/20 00:55: Urine Random Creatinine 177.0, Urine Random Sodium 45, Urine Random Urea Nitrogen 1065, Urine Opiates Screen NEGATIVE, Urine Methadone Screen NEGATIVE, Urine Barbiturates Screen NEGATIVE, Urine Phencyclidine Screen NEGATIVE, Urine Amphetamines Screen NEGATIVE, Urine Benzodiazepines Screen NEGATIVE, Urine Cocai ne Metabolite Screen NEGATIVE, Urine Cannabinoids Screen NEGATIVE 05/05/20 05:30: Immature Granulocyte % (Auto) 0.4, Neutrophils (%) (Auto) 69.8H, Lymphocytes (%) (Auto) 18.9L, Monocytes (%) (Auto) 9.2H, Eosinophils (%) (Auto) 1.2, Basophils (%) (Auto) 0.5, Neutrophils # (Auto) 8.5, Lymphocytes # (Auto) 2.3, Monocytes # (Auto) 1.1H, Eosinophils # (Auto) 0.2, Basophils # (Auto) 0.1, Nucleated Red Blood Cells % (auto) 0.0, Anion Gap 6L, Glomerular Filtration Rate > 60.0, Calci um Level 8.3L, Total Bilirubin 0.5, Aspartate Amino Transf (AST/SGOT) 31, Alanine Aminotransferase (ALT/SGPT) 51, Alkaline Phosphatase 68, C-Reactive Protein, Quantitative 9.31H, Total Protein 6.6, Albumin 3.0L, Albumin/Globulin Ratio 0.8 05/05/20 11:07: Vancomycin Level Trough 5.1L 05/05/20 11:55: Bedside Glucose (Misc Panel) 96 CBC/BMP Laboratory Tests 05/05/20 05:30 Microbiology Microbiology 05/03/20 Blood Culture - Preliminary, Resulted No growth after 24 hours . All specim... 05/03/20 Blood Culture - Preliminary, Resulted No growth after 24 hours . All specim... GME ATTESTATION GME ATTESTATION My faculty preceptor for this patient encounter was physically present during the encounter and was fully available. All aspects of the patient interview, e xamination, medical decision making process, and medical care plan development were reviewed and approved by the faculty preceptor. The faculty preceptor is aware and concurs with the plan as stated in the body of this note and will attest to such by his/her cosignature. HATTIE DAWSON DO May 05, 2020 12:21
--- NOTE | 2020-05-05 12:28 | REP ---
INDICATION: Worsening cellulitis/ CT right lower extremity with IV cont.. COMPARISON: None. TECHNIQUE: Helical scanning is acquired following the intravenous injection of 100 mL of Isovue 370. 3 mm axial images re-formatted. Coronal and sagittal MPR images are provided. FINDINGS: Digital preliminary [facility] radiographs unremarkable. Axial CT images demonstrate diffuse circumferential soft tissue edema pattern in the distal calf and an oral lateral and anteromedial subcutaneous edema in the proximal calf. There is no evidence of abscess or other fluid collection. Cortical and medullary bone density are intact and unremarkable. There is fragmented spurring at the anterior tibial apophysis which is old. There is no acute bony abnormality. No significant joint effusion is seen at the knee. No vascular abnormality is appreciated. IMPRESSION: Soft tissue edema. No abscess or localized fluid collection. No acute bony abnormality. <Electronically signed by Cristobal Dockery > 05/05/20 [id number]
[2020-05-05] MEDS: SENNA 8.6 MG TAB (SENOKOT) PO SCH ×2 (12:39→20:41)
[2020-05-05 14:00] VITALS: BP 137/86
--- NOTE | 2020-05-05 14:46 | REP ---
INDICATION: r/o DVT. COMPARISON: 10/16/2019. TECHNIQUE: Right lower extremity deep vein duplex ultrasound. FINDINGS: The deep veins demonstrate normal compression, normal Doppler color flow and normal Doppler waveforms with respiration augmentation at multiple levels from the popliteal vein to the common femoral vein. There is no right lower extremity deep vein thrombus. There are multiple enlarged right inguinal lymph nodes, the largest measuring 3.8 x 2.1 x 1.5 cm. IMPRESSION: There is no right lower extremity deep vein thrombus. There are multiple enlarged right inguinal lymph nodes. <Electronically signed by Oj Wan > 05/05/20 0009
[2020-05-05] MEDS: BUPRENORPHINE/NALOXONE 2-0.5MG SUBLINGUAL TABLET(SUBOXONE) SL SCH (17:59)
[2020-05-05] MEDS: VANCOMYCIN HCL 1,000 MG, VIAL MATE ADAPTER 1 EACH in NS 250 ML IV SCH (20:41)
[2020-05-05] MEDS ORDERED: HumaLOG INSULIN (NovoLOG) PER UNIT SC SCH (21:00)
[2020-05-05 22:00] VITALS: BP 151/79
[2020-05-05] MEDS: NICOTINE 21MG/24HR 1 EA TRANSDERMAL TD PRN (22:01)
[2020-05-06] MEDS: VANCOMYCIN HCL 1,000 MG, VIAL MATE ADAPTER 1 EACH in NS 250 ML IV SCH ×2 (03:32→12:00)
[2020-05-06] MEDS: ACETAMINOPHEN TAB 650MG DOSE (2X325MG) PO PRN (03:33)
[2020-05-06] MEDS: ceFAZolin SOD 1 GM in D5W MINI-BAG PLUS 50 ML IV SCH (05:25)
[2020-05-06 06:00] VITALS: BP 138/77
[2020-05-06 06:21] LABS: BASO # 0.1 10^3/uL (0.0-0.2); BASO % 0.6 % (0.0-1.0); EOS # 0.3 10^3/uL (0.0-0.5); EOS % 2.9 % (0.0-3.0); HEMATOCRIT 35.4 % (42.0-52.0); HEMOGLOBIN 11.8 g/dl (13.5-17.5); LYMPH # 2.2 10^3/uL (1.5-5.0); LYMPH % 25.6 % (24.0-44.0); MEAN CORPUSCULAR HEMOGLOBIN 29.6 pg (27.0-33.0); MEAN CORPUSCULAR HGB CONC 33.3 g/dl (32.0-36.5); MEAN CORPUSCULAR VOLUME 88.7 fl (80.0-96.0); MONO # 0.8 10^3/uL (0.0-0.8); MONO % 9.3 % (2.0-8.0); NEUTROPHILS # 5.2 10^3/uL (1.5-8.5); NEUTROPHILS % 61.1 % (36.0-66.0); PLATELET COUNT, AUTOMATED 141 10^3/uL (150-450); RED BLOOD COUNT 3.99 10^6/uL (4.30-6.10); WHITE BLOOD COUNT 8.6 10^3/uL (4.0-10.0)
[2020-05-06 06:42] LABS: ALBUMIN 2.7 GM/DL (3.2-5.2); ALT/SGPT 36 U/L (12-78); BILIRUBIN,TOTAL 0.2 MG/DL (0.2-1.0); BLOOD UREA NITROGEN 11 MG/DL (7-18); CARBON DIOXIDE LEVEL 27 MEQ/L (21-32); CHLORIDE LEVEL 105 MEQ/L (98-107); CREATININE FOR GFR 0.73 MG/DL (0.70-1.30); GLOMERULAR FILTRATION RATE > 60.0 (>60); GLUCOSE, FASTING 108 MG/DL (70-100); POTASSIUM SERUM 4.1 MEQ/L (3.5-5.1); SODIUM LEVEL 137 MEQ/L (136-145); TOTAL PROTEIN 6.2 GM/DL (6.4-8.2)
[2020-05-06 07:47] LABS: C REACTIVE PROTEIN QUANTITATIV 6.72 MG/DL (0.00-0.30)
[2020-05-06] MEDS: HumaLOG INSULIN (NovoLOG) PER UNIT SC SCH ×2 (08:40→12:00)
[2020-05-06] MEDS: BUPRENORPHINE/NALOXONE 8-2MG SUBLINGUAL TABLET(SUBOXONE) SL SCH (08:40)
[2020-05-06] MEDS: SENNA 8.6 MG TAB (SENOKOT) PO SCH (08:43)
[2020-05-06 08:44] VITALS: BP 138/77
[2020-05-06] MEDS: ENOXAPARIN 40MG/0.4ML SYRINGE (J1650 PER 10MG) SC SCH (08:44)
[2020-05-06] MEDS: PROPRANOLOL 10 MG TAB PO SCH (08:44)
[2020-05-06] MEDS ORDERED: CEFD1CAP8 PO (10:33)
[2020-05-06] MEDS ORDERED: DOXY-350 PO (10:33)
--- NOTE | 2020-05-06 14:32 | DS.PDOC ---
Discharge Summary General Date of Admission May 03, 2020 at 23:50 Date of Discharge 05/06/20 Attending Physician: LITO LEMON MD Discharge Summary PROCEDURES PERFORMED DURING STAY: [None]. ADMITTING DIAGNOSES: 1. Sepsis 2/2 Right leg cellulitis 2. Right leg cellulitis 3. Altered mental Status DISCHARGE DIAGNOSES: 1. Sepsis 2/2 Right leg cellulitis 2. Right leg cellulitis 3. Altered mental Status . COMPLICATIONS/CHIEF COMPLAINT: Cellulitis Of R Lower Extremity,Sepsis. HISTORY OF PRESENT ILLNESS: Patient is a 49-year-old male with past medical history significant for diabetes mellitus type 2, hypertension, dyslipidemia, chronic back pain, obesity, who presented to [facility] emergency department with a complaint of right leg pain and redness. Patient stated that he was out shopping with his when he noted some right leg pain when walking, as well as some increasing in redness and warmth. Interestingly, patient stated that when he got home there was an episode where he felt short of breath and was subsequently found to be confused. Patient's has stated that she had noticed that he was transiently confused since returning from shopping. On presentation to the emergency room the patient was vitally stable. He was tachycardic and febrile. His son deficit any leukocytosis 18.6. . He received a head CT due to his altered mental status, which was negative for any acute findings. Additionally received a chest x-ray and x-ray of his leg to rule out osteomyelitis. Patient was admitted to hospital service for further evaluation and management HOSPITAL COURSE: On evaluation in the hospital, the patient had significant erythema of his right anterior catherine, which was consistent more with an erysipelas versus a cellulitis. He was continued on vancomycin and cefazolin. The patient's cellulitis did appear to be improving. His vancomycin was discontinued due to a MRSA screen that was negative. However, the following day the patient had worsening of his erythema and swelling as well as a rising CRP. The vancomycin was then once again added. Following day, the patient had downtrending of his CRP as well as decrease in the erythema and swelling of his right lower extremity. It was felt that the patient possibly did have a MRSA infection or possibly a vancomycin-resistant strep species. During his course. He also received a extremity CT vascular ultrasound, all which were negative. His extremity CT did demonstrate some lymphadenopathy in the right groin, however, this is expected in the setting of an acute cellulitis/infection of his right lower extremity. Regarding the patient's altered mental status on presentation he was found to have acute kidney injury with a creatinine of 1.76. The patient was taking hydroxyzine. The setting of sepsis with acute kidney injury and with his medications. It is possible that he had developed some altered mental status from metabolic encephalopathy. His eye drops. He was therefore held. Etiology was acute kidney injury was likely prerenal given his sepsis. Additionally, the patient was on both lisinopril and Lasix at home. Both these medications were held while he was inpatient status. Patient did show clinical improvement was recommended for discharge home with cefdinir and doxycycline. Patient stated that he does not currently have a primary care physician and he was referred to the graduate medical education clinic to establish care. Additionally, patient is recommended to elevate his legs and to use a lotion/moisturizer to prevent further cracks in his skin that could lead to a cellulitis/erysipelas. His hydroxyzine was discontinued at discharge and may be reevaluated by his primary care physician when he establishes care. DISCHARGE MEDICATIONS: Please see below. ALLERGIES: Please see below. PHYSICAL EXAMINATION ON DISCHARGE: VITAL SIGNS: Please see below. GENERAL: Awake, alert, and oriented. Appears in no acute distress. Lying comfortably in bed. HEENT: Atraumatic, normocephalic. Eyes are nonicteric. Trachea is midline. No palpable cervical, axillary or supraclavicular lymphadenopathy CARDIOVASCULAR: Normal S1, S2. Regular rate and rhythm. No clicks rubs or murmurs RESPIRATORY: some crackles in the right base and bilaterally diminished. Symmetric chest expansion. No wheezes, or rhonchi ABDOMINAL: Soft, nondistended. Nontender. Obese. Normoactive bowel sounds EXTREMITIES: Area of erythema of right anterior catherine. Decrease from previous examination. No calf swelling or pain. Skin is dry and cracked on bilateral lower extremities NEUROLOGICAL: No focal neurological deficits PSYCHOLOGICAL: Mood and affect appear appropriate LABORATORY DATA: Please see below. IMAGING: PROCEDURE INFORMATION: Exam: CT Head Without Contrast Exam date and time: 05/03/2020 10:42 PM Age: 49 years old Clinical indication: Altered mental status/memory loss TECHNIQUE: Imaging protocol: Computed tomography of the head without contrast. Radiation optimization: All CT scans at this facility use at least one of these dose optimization techniques: automated exposure control; mA and/or kV adjustment per patient size (includes targeted exams where dose is matched to clinical indication); or iterative reconstruction. COMPARISON: No relevant prior studies available. FINDINGS: Limitations: Patient motion. Brain: No definite acute intracranial hemorrhage. No midline shift or intracranial mass effect. No cerebral edema. Cerebral ventricles: No hydrocephalus. Bones/joints: Unremarkable. No acute fracture. Paranasal sinuses: Visualized sinuses are unremarkable. No fluid levels. Mastoid air cells: Opacification of the right mastoid air cells. Soft tissues: Unremarkable. IMPRESSION: Patient motion without definite acute intracranial abnormality. Electronically signed by: Reinaldo Snyder On 05/03/2020 23:03:39 PM PROCEDURE INFORMATION: Exam: XR Chest Exam date and time: 05/03/2020 11:22 PM Age: 49 years old Clinical indication: Fever TECHNIQUE: Imaging protocol: XR of the chest Views: 1 view. COMPARISON: CR Chest, 1 view 08/25/2013 10:32 AM FINDINGS: Lungs: Unremarkable. No consolidation. Pleural spaces: Unremarkable. No pleural effusion. No pneumothorax. Heart/Mediastinum: Unremarkable. No cardiomegaly. Bones/joints: Unremarkable. IMPRESSION: No acute findings. Electronically signed by: Reinaldo Snyder On 05/03/2020 23:34:55 PM DD: REINALDO SNYDER MD 05/03/202321 DT: HARISH 05/03/202333 DS: SACHI 05/03/202333 INDICATION: RLE cellulitis r/o foreign body COMPARISON: None. TECHNIQUE: AP and lateral views of the right tibia/fibula. FINDINGS: The osseous structures and joint spaces are intact and normal. There is no evidence for acute fracture or dislocation. Surrounding soft tissues are unremarkable. No subcutaneous emphysema or radiodense foreign body. IMPRESSION: Essentially normal radiographic evaluation. No subcutaneous emphysema or foreign body identified. <Electronically signed by Michael Virk > 05/04/20 0748 INDICATION: PHAN. COMPARISON: Comparison sonography is from a September 06, 2016.. TECHNIQUE: Urinary tract sonography. FINDINGS: Scanning at the level of the urinary bladder shows no abnormality. Renal cortical echogenicity pattern is normal bilaterally and contours are smooth. There is no evidence of hydronephrosis, cyst, mass, or calculus in either kid onelia. The right kidney measures 12.9 x 5.5 x 5.3 cm. Left renal dimensions are 13.5 x 5.2 x 6.1 cm. 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 No hydronephrosis. IMPRESSION: Normal urinary tract sonography. <Electronically signed by Cristobal Dockery > 05/04/20 1303 INDICATION: r/o DVT. COMPARISON: 10/16/2019. TECHNIQUE: Right lower extremity deep vein duplex ultrasound. FINDINGS: The deep veins demonstrate normal compression, normal Doppler color flow and normal Doppler waveforms with respiration augmentation at multiple levels from the popliteal vein to the common femoral vein. There is no right lower extremity deep vein thrombus. There are multiple enlarged right inguinal lymph nodes, the largest measuring 3.8 x 2.1 x 1.5 cm. IMPRESSION: There is no right lower extremity deep vein thrombus. There are multiple enlarged right inguinal lymph nodes. <Electronically signed by Oj Wan > 05/05/20 1443 INDICATION: Worsening cellulitis/ CT right lower extremity with IV cont.. COMPARISON: None. TECHNIQUE: Helical scanning is acquired following the intravenous injection of 100 mL of Isovue 370. 3 mm axial images re-formatted. Coronal and sagittal MPR images are provided. FINDINGS: Digital preliminary pilates coordinator radiographs unremarkable. Axial CT images demonstrate diffuse circumferential soft tissue edema pattern in the distal calf and an oral lateral and anteromedial subcutaneous edema in the proximal calf. There is no evidence of abscess or other fluid collection. Cortical and medullary bone density are intact and unremarkable. There is fragmented spurring at the anterior tibial apophysis which is old. There is no acute bony abnormality. No significant joint effusion is seen at the knee. No vascular abnormality is appreciated. IMPRESSION: Soft tissue edema. No abscess or localized fluid collection. No acute bony abnormality. <Electronically signed by Cristobal Dockery > 05/05/20 1224 PROGNOSIS: Good ACTIVITY: [As tolerated]. DIET: 2 g sodium and consistent carbohydrate DISCHARGE PLAN: Patient is to be discharged home. He has been referred to the [facility] clinic to establish care. He is a continue doxycycline and Cefdinir for 7 days. . He is to elevate his feet at home. Patient instructed to lotion and moisturize his legs to prevent further skin cracking. DISPOSITION: 01 Home, Self-Care. DISCHARGE INSTRUCTIONS: 1. Continue doxycycline and cefdinir for 7 days 2. Referral sent to [facility] education clinic to establish care DISCHARGE CONDITION: [Stable]. TIME SPENT ON DISCHARGE: Greater than 40 minutes. Vital Signs/I&Os Vital Signs Date Time Temp Pulse Resp B/P (MAP) Pulse Ox O2 Delivery O2 Flow Rate FiO2 05/06/20 08:44 62 138/77 05/06/20 06:00 98.8 18 95 Room Air I&O- Last 24 Hours up to 6 AM 05/06/20 06:00 Intake Total 3660 ml Output Total 2350 ml Balance 1310 ml Laboratory Data Labs 24H Laboratory Tests 2 05/05/20 16:33: Bedside Glucose (Misc Panel) 112H 05/05/20 19:31: Bedside Glucose (Misc Panel) 118H 05/06/20 05:54: Immature Granulocyte % (Auto) 0.5, Neutrophils (%) (Auto) 61.1, Lymphocytes (%) (Auto) 25.6, Monocytes (%) (Auto) 9.3H, Eosinophils (%) (Auto) 2.9, Basophils (%) (Auto) 0.6, Neutrophils # (Auto) 5.2, Lymphocytes # (Auto) 2.2, Monocytes # (Auto) 0.8, Eosinophils # (Auto) 0.3, Basophils # (Auto) 0.1, Nucleated Red Blood Cells % (auto) 0.0, Anion Gap 5L, Glomerular Filtration Rate > 60.0, Calcium Level 8.0L, Total Bilirubin 0.2#, Aspartate Amino Transf (AST/SGOT) 25, Alanine Aminotransferase (ALT/SGPT) 36, Alkaline Phosphatase 72, C-Reactive Pr otein, Quantitative 6.72H, Total Protein 6.2L, Albumin 2.7L, Albumin/Globulin Ratio 0.8 05/06/20 11:37: Bedside Glucose (Misc Panel) 124H CBC/BMP Laboratory Tests 05/06/20 05:54 FSBS Laboratory Tests Test 05/05/20 16:33 05/05/20 19:31 05/06/20 11:37 Range/Units Bedside Glucose (Misc Panel) 112 118 124 70-105 MG/DL Microbiology Microbiology 05/03/20 Blood Culture - Preliminary, Resulted No Growth after 48 hours. All Specime... 05/03/20 Blood Culture - Preliminary, Resulted No Growth after 48 hours. All Specime... Discharge Medications Scheduled Buprenorphine HCl/Naloxone HCl (Suboxone 8 mg-2 mg Sl Film) 1 Each Film, 1 STRIP SL DAILY, (Reported) Buprenorphine HCl/Naloxone HCl (Suboxone 4 mg-1 mg Sl Film) 1 Each Film, 1 STRIP SL QPM, (Reported) TAKES AT 1700 Cefdinir (Cefdinir) 300 Mg Capsule, 300 MG PO BID Doxycycline Monohydrate (Doxycycline) 100 Mg Capsule, 100 MG PO BID Furosemide (Furosemide) 40 Mg Tablet, 40 MG PO DAILY, (Reported) Lisinopril (Lisinopril) 40 Mg Tablet, 40 MG PO DAILY, (Reported) Metformin HCl (Metformin HCl ER) 500 Mg Tab.er.24h, 500 MG PO BIDWM, (Reported) Propranolol HCl (Propranolol HCl) 10 Mg Tablet, 10 MG PO BID, (Reported) PATIENT STATES THAT HIS DOSE WAS INCREASED TO 20MG BID BUT NO DOCUMENTATION TO SUPPORT. Allergies Coded Allergies: No Known Allergies (Unverified , 07/11/16) GME ATTESTATION GME ATTESTATION My faculty preceptor for this patient encounter was physically present during the encounter and was fully available. All aspects of the patient interview, examination, medical decision making process, and medical care plan development were reviewed and approved by the faculty preceptor. The faculty preceptor is aware and concurs with the plan as stated in the body of this note and will at test to such by his/her cosignature. HATTIE DAWSON DO May 06, 2020 14:32
== END 2020-05-06 13:12 | disposition home or self-care (01) | DRG 720 ==
LOC: M ED 21:23 → M ED INP 23:50 → ENRESERV 05-04 00:32 → M MSPAV 05-04 01:10
PROVIDERS: ADMIT Internal Medicine; ATTEND Internal Medicine
DX: A41.9 Sepsis, unspecified organism (principal); G93.41 Metabolic encephalopathy; N17.9 Acute kidney failure, unspecified; K75.81 Nonalcoholic steatohepatitis (NASH); L03.115 Cellulitis of right lower limb; I10 Essential (primary) hypertension; E66.9 Obesity, unspecified; Z68.37 Body mass index [BMI] 37.0-37.9, adult; E11.9 Type 2 diabetes mellitus without complications; E78.5 Hyperlipidemia, unspecified; M54.5 Low back pain; Z79.899 Other long term (current) drug therapy; F17.200 Nicotine dependence, unspecified, uncomplicated

== ENCOUNTER → 2020-10-07 | Outpatient (REF) | payer OTHER ==
[~2020-10-07] MED LIST changes: +BUPR1FIL6 SL; +CEFD1CAP8 PO; +DOXY-350 PO; +FURO40TA2 PO; +HYDR-3363 PO; +LISI40TA4 PO; +METF-838 PO; +PROP10TA56 PO; +SUBO4MIS SL; +SUBO8MIS SL
[2020-10-07 18:45] LABS: BASO # 0.1 10^3/uL (0.0-0.2); BASO % 0.8 % (0.0-1.0); EOS # 0.4 10^3/uL (0.0-0.5); EOS % 4.1 % (0.0-3.0); HEMATOCRIT 45.4 % (42.0-52.0); HEMOGLOBIN 15.3 g/dl (13.5-17.5); LYMPH # 3.8 10^3/uL (1.5-5.0); LYMPH % 40.8 % (24.0-44.0); MEAN CORPUSCULAR HEMOGLOBIN 30.8 pg (27.0-33.0); MEAN CORPUSCULAR HGB CONC 33.7 g/dl (32.0-36.5); MEAN CORPUSCULAR VOLUME 91.3 fl (80.0-96.0); MONO # 0.7 10^3/uL (0.0-0.8); MONO % 7.4 % (2.0-8.0); NEUTROPHILS # 4.4 10^3/uL (1.5-8.5); NEUTROPHILS % 46.7 % (36.0-66.0); PLATELET COUNT, AUTOMATED 195 10^3/uL (150-450); RED BLOOD COUNT 4.97 10^6/uL (4.30-6.10); WHITE BLOOD COUNT 9.4 10^3/uL (4.0-10.0)
[2020-10-07 19:12] LABS: HEMOGLOBIN A1c 6.1 %
[2020-10-07 19:18] LABS: ALBUMIN 3.6 GM/DL (3.2-5.2); ALT/SGPT 66 U/L (12-78); BILIRUBIN,TOTAL 0.3 MG/DL (0.2-1.0); BLOOD UREA NITROGEN 13 MG/DL (7-18); CALCIUM LEVEL 8.9 MG/DL (8.5-10.1); CARBON DIOXIDE LEVEL 33 MEQ/L (21-32); CHLORIDE LEVEL 103 MEQ/L (98-107); CHOLESTEROL LEVEL 190 MG/DL (<200); CHOLESTEROL RISK RATIO 6.785 (<5); CREATININE FOR GFR 1.09 MG/DL (0.70-1.30); GLOMERULAR FILTRATION RATE > 60.0 (>56); GLUCOSE, FASTING 100 MG/DL (70-100); HDL CHOLESTEROL 28 MG/DL (>40); LDL CHOLESTEROL 101 MG/DL (<100); NON-HDL-C 162 MG/DL; POTASSIUM SERUM 4.4 MEQ/L (3.5-5.1); SODIUM LEVEL 140 MEQ/L (136-145); TOTAL PROTEIN 7.7 GM/DL (6.4-8.2); TRIGLYCERIDES LEVEL 305 MG/DL (<150)
[2020-10-07 19:20] LABS: MALB URINE SIEMENS 8.9 MG/L; MAU/CREAT RATIO 4.7 MCG/MG (0.0-30.0)
== END ==
LOC: M SFHCADAM 16:13
PROVIDERS: ATTEND Physician Assistant Medical
DX: E11.51 Type 2 diabetes mellitus with diabetic peripheral angiopathy without gangrene (principal); E78.2 Mixed hyperlipidemia

== ENCOUNTER 2021-04-07 16:41 | Inpatient (IN) | payer OTHER ==
[~2021-04-07] VITALS: Ht 177.8 cm; Wt 129.0 kg
[~2021-04-07 16:41] MED LIST changes: +BUPR1FIL37 SL; -BUPR1FIL6 SL; -CEFD1CAP8 PO; +CEFD300C41 PO
[2021-04-07] MEDS ORDERED: ACETAMINOPHEN 650 MG SUPP PR ONE (17:20)
[2021-04-07 18:08] LABS: BASO % 0.3 % (0.0-1.0); EOS % 0.2 % (0.0-3.0); HEMATOCRIT 48.1 % (42.0-52.0); HEMOGLOBIN 15.9 g/dl (13.5-17.5); LYMPH # 0.9 10^3/uL (1.5-5.0); LYMPH % 7.8 % (24.0-44.0); MEAN CORPUSCULAR HEMOGLOBIN 29.8 pg (27.0-33.0); MEAN CORPUSCULAR HGB CONC 33.1 g/dl (32.0-36.5); MEAN CORPUSCULAR VOLUME 90.2 fl (80.0-96.0); MONO # 0.6 10^3/uL (0.0-0.8); MONO % 4.9 % (2.0-8.0); NEUTROPHILS # 10.1 10^3/uL (1.5-8.5); NEUTROPHILS % 86.4 % (36.0-66.0); PLATELET COUNT, AUTOMATED 130 10^3/uL (150-450); RED BLOOD COUNT 5.33 10^6/uL (4.30-6.10); WHITE BLOOD COUNT 11.7 10^3/uL (4.0-10.0)
[2021-04-07 18:37] LABS: AMPHETAMINES LEVEL URINE NEGATIVE (NEGATIVE); BARBITURATES URINE NEGATIVE (NEGATIVE); BENZODIAZEPINES URINE NEGATIVE (NEGATIVE); CANNABINOIDS URINE NEGATIVE (NEGATIVE); COCAINE METABOLITE URINE NEGATIVE (NEGATIVE); METHADONE URINE NEGATIVE (NEGATIVE); OPIATES URINE NEGATIVE (NEGATIVE); PHENCYCLIDINE URINE NEGATIVE (NEGATIVE)
[2021-04-07] MEDS ORDERED: VANCOMYCIN HCL 1,000 MG, VIAL MATE ADAPTER 1 EACH in NS 250 ML IV ONE (18:40)
[2021-04-07 18:51] LABS: ACETAMINOPHEN LEVEL < 2.0 UG/ML (10.0-30.0); ALBUMIN 3.9 GM/DL (3.2-5.2); ALT/SGPT 55 U/L (12-78); BILIRUBIN,DIRECT 0.3 MG/DL (0.0-0.2); BILIRUBIN,TOTAL 0.7 MG/DL (0.2-1.0); BLOOD UREA NITROGEN 13 MG/DL (7-18); CALCIUM LEVEL 9.9 MG/DL (8.5-10.1); CARBON DIOXIDE LEVEL 33 MEQ/L (21-32); CHLORIDE LEVEL 96 MEQ/L (98-107); ETHYL ALCOHOL (ETHANOL) 0.003 % (0.000-0.010); GLOMERULAR FILTRATION RATE > 60.0 (>56); GLUCOSE, FASTING 139 MG/DL (70-100); POTASSIUM SERUM 4.2 MEQ/L (3.5-5.1); SALICYLATE LEVEL 3.1 MG/DL (5.0-30.0); SODIUM LEVEL 136 MEQ/L (136-145); TOTAL PROTEIN 8.4 GM/DL (6.4-8.2)
[2021-04-07 19:05] LABS: ABG BASE EXCESS 3.8 (-2.0-2.0); ABG O2 SATURATION 94.4 % (95.0-99.0); ABG PARTIAL PRESSURE CO2 45.6 mmHg (35.0-45.0); ABG PARTIAL PRESSURE O2 66.6 mmHg (75.0-100.0); ABG STANDARD HCO3 27.7 MEQ/L (22.0-26.0); ABG TOTAL CO2 30.4 MEQ/L (22.0-29.0); ABG pH (ARTERIAL) 7.421 UNITS (7.350-7.450)
[2021-04-07] MEDS ORDERED: PIPERACILLIN/TAZOBACTAM SOD 4.5 GM in D5W MINI-BAG PLUS 50 ML IV ONE (19:15)
[2021-04-07] MEDS ORDERED: ISOVUE-370 76% 100ML VIAL As Ordered ONE (19:20)
[2021-04-07 19:25] LABS: CK-MB VALUE MASS < 1.0 NG/ML (<3.6); CPK CREATINE PHOSPHOKINASE 46 U/L (39-308); MB/CK RELATIVE INDEX 2.17 (< OR =4)
[2021-04-07] MEDS ORDERED: HOME MED LIST COMPLETE! XX SCH (20:40)
[2021-04-07] MEDS ORDERED: HYDR-3363 PO (20:59)
[2021-04-07] MEDS ORDERED: MED REC COMMENT (21:00)
[2021-04-07] MEDS ORDERED: IBUPROFEN 600MG TAB PO ONE (21:50)
[2021-04-07 23:55] VITALS: BP 128/71
[2021-04-08] VITALS (8 sets, daily range): BP systolic 129–152; BP diastolic 72–77; O2SAT 92–94
[2021-04-08] MEDS ORDERED: NS IV SCH (00:25)
[2021-04-08] MEDS ORDERED: VANCOMYCIN HCL IV SCH (00:25)
[2021-04-08] MEDS ORDERED: MATE ADAPTER IV SCH (00:25)
[2021-04-08] MEDS ORDERED: NS 1,000 ML IV ONE (01:40)
[2021-04-08] MEDS ORDERED: DEXTROSE 50% 50 ML SYRINGE IV PRN (01:50)
[2021-04-08] MEDS ORDERED: dexameTHASONE 20MG/5ML VIAL (J1100 PER 1MG) IV ONE (01:50)
[2021-04-08] MEDS ORDERED: GLUCAGON INJ 1MG VIAL SC PRN (01:50)
[2021-04-08] MEDS ORDERED: GLUCOSE 4GM CHEW TABLET PO PRN (01:50)
[2021-04-08] MEDS ORDERED: REMDESIVIR 200 MG in NS 250 ML IV ONE (02:00)
[2021-04-08] MEDS: NS 1,000 ML IV SCH ×2 (02:33→07:29)
[2021-04-08] MEDS ORDERED: SODIUM CHLORIDE 0.9% INJ 10 ML SYR IV ONE (04:00)
[2021-04-08] MEDS: VANCOMYCIN HCL 750 MG, VIAL MATE ADAPTER 1 EACH in NS 250 ML IV SCH ×4 (05:45→21:19)
[2021-04-08 06:21] LABS: FREE T4 1.49 NG/DL (0.76-1.46)
[2021-04-08] MEDS: HumaLOG INSULIN (NovoLOG) PER UNIT SC SCH ×3 (07:27→17:14)
[2021-04-08] MEDS: VANCOMYCIN HCL 500 MG in D5W MINI-BAG PLUS 100 ML IV SCH ×2 (07:27→13:17)
[2021-04-08 10:39] LABS: BLOOD UREA NITROGEN 17 MG/DL (7-18); CALCIUM LEVEL 8.7 MG/DL (8.5-10.1); CARBON DIOXIDE LEVEL 28 MEQ/L (21-32); CHLORIDE LEVEL 98 MEQ/L (98-107); CREATININE FOR GFR 1.15 MG/DL (0.70-1.30); GLOMERULAR FILTRATION RATE > 60.0 (>56); GLUCOSE, FASTING 206 MG/DL (70-100); POTASSIUM SERUM 3.7 MEQ/L (3.5-5.1); SODIUM LEVEL 136 MEQ/L (136-145)
[2021-04-08] MEDS: NICOTINE 21MG/24HR 1 EA TRANSDERMAL TD SCH (14:28)
[2021-04-08] MEDS ORDERED: hydrOXYzine 25 MG TAB PO PRN (15:15)
[2021-04-08] MEDS: lisinopriL 40 MG TAB PO SCH (16:34)
[2021-04-08] MEDS ORDERED: BUPRENORPHINE/NALOXONE 2-0.5MG SUBLINGUAL TABLET(SUBOXONE) SL SCH (17:00)
[2021-04-08] MEDS: PROPRANOLOL 10 MG TAB PO SCH (20:10)
[2021-04-08] MEDS ORDERED: HumaLOG INSULIN (NovoLOG) PER UNIT SC SCH (21:00)
[2021-04-08] MEDS: HEPARIN SOD (PORCINE) 5000UNITS/ML 1ML VIAL/SYRINGE SQ SCH (21:19)
[2021-04-09] VITALS: O2SAT 94
[2021-04-09] MEDS ORDERED: REMDESIVIR 100 MG in NS 250 ML IV SCH ×2
[2021-04-09] MEDS ORDERED: SODIUM CHLORIDE 0.9% INJ 10 ML SYR IV SCH (01:00)
[2021-04-09 04:00] VITALS: O2SAT 96
[2021-04-09] MEDS: VANCOMYCIN HCL 750 MG, VIAL MATE ADAPTER 1 EACH in NS 250 ML IV SCH ×2 (04:21→05:39)
[2021-04-09 05:18] VITALS: BP 129/71
[2021-04-09] MEDS: HEPARIN SOD (PORCINE) 5000UNITS/ML 1ML VIAL/SYRINGE SQ SCH (05:40)
[2021-04-09 06:53] LABS: HEMATOCRIT 39.7 % (42.0-52.0); MEAN CORPUSCULAR VOLUME 90.8 fl (80.0-96.0); PLATELET COUNT, AUTOMATED 134 10^3/uL (150-450); RED BLOOD COUNT 4.37 10^6/uL (4.30-6.10); WHITE BLOOD COUNT 15.3 10^3/uL (4.0-10.0)
[2021-04-09 06:54] LABS: HEMOGLOBIN 13.1 g/dl (13.5-17.5)
[2021-04-09 07:25] LABS: ALBUMIN 2.9 GM/DL (3.2-5.2); ALT/SGPT 33 U/L (12-78); BILIRUBIN,DIRECT 0.1 MG/DL (0.0-0.2); BILIRUBIN,TOTAL 0.4 MG/DL (0.2-1.0); BLOOD UREA NITROGEN 17 MG/DL (7-18); CALCIUM LEVEL 8.6 MG/DL (8.5-10.1); CARBON DIOXIDE LEVEL 27 MEQ/L (21-32); CHLORIDE LEVEL 102 MEQ/L (98-107); CREATININE FOR GFR 0.83 MG/DL (0.70-1.30); GLOMERULAR FILTRATION RATE > 60.0 (>56); GLUCOSE, FASTING 137 MG/DL (70-100); SODIUM LEVEL 135 MEQ/L (136-145); TOTAL PROTEIN 6.9 GM/DL (6.4-8.2)
[2021-04-09] MEDS: HumaLOG INSULIN (NovoLOG) PER UNIT SC SCH (08:17)
[2021-04-09 08:18] VITALS: BP 135/88
[2021-04-09] MEDS: lisinopriL 40 MG TAB PO SCH (08:18)
[2021-04-09] MEDS: NICOTINE 21MG/24HR 1 EA TRANSDERMAL TD SCH (08:18)
[2021-04-09] MEDS: PROPRANOLOL 10 MG TAB PO SCH (08:18)
[2021-04-09] MEDS ORDERED: CEPH500C PO (08:30)
[2021-04-09] MEDS ORDERED: ECOT81TA5 PO (08:30)
[2021-04-09] MEDS ORDERED: PROB250C PO (08:30)
[2021-04-09 08:54] VITALS: O2SAT 97
[2021-04-09] MEDS ORDERED: BUPRENORPHINE/NALOXONE 8-2MG SUBLINGUAL TABLET(SUBOXONE) SL SCH (09:00)
== END 2021-04-09 09:43 | disposition home or self-care (01) | DRG 720 ==
LOC: EDBD 16:41 → M ED 16:41 → M ED INP 22:07 → M 4MAIN 23:55
PROVIDERS: ADMIT Internal Medicine; ATTEND Internal Medicine
PROC: 009U3ZX Drainage of Spinal Canal, Percutaneous Approach, Diagnostic (ICD-10-PCS; 2021-04-07)
PROC: 3E0333Z Introduction of Anti-inflammatory into Peripheral Vein, Percutaneous Approach (ICD-10-PCS; principal; 2021-04-08)
PROC: XW033E5 Introduction of Remdesivir Anti-infective into Peripheral Vein, Percutaneous Approach, New Technology Group 5 (ICD-10-PCS; 2021-04-08)
DX: A41.9 Sepsis, unspecified organism (principal); U07.1 COVID-19; E87.3 Alkalosis; D69.6 Thrombocytopenia, unspecified; E66.01 Morbid (severe) obesity due to excess calories; K76.0 Fatty (change of) liver, not elsewhere classified; L03.115 Cellulitis of right lower limb; E11.9 Type 2 diabetes mellitus without complications; I10 Essential (primary) hypertension; Z79.84 Long term (current) use of oral hypoglycemic drugs; Z79.899 Other long term (current) drug therapy; F11.11 Opioid abuse, in remission; F17.210 Nicotine dependence, cigarettes, uncomplicated; R31.9 Hematuria, unspecified; E07.9 Disorder of thyroid, unspecified; Z53.09 Procedure and treatment not carried out because of other contraindication

== ENCOUNTER → 2021-06-05 | Outpatient (REF) | payer OTHER ==
[~2021-06-05] MED LIST changes: +CEPH500C PO; -DOXY150C PO; +DOXY150C3 PO; +ECOT81TA5 PO; +MED REC COMMENT; +PROB250C PO
[2021-06-05 16:45] LABS: BASO # 0.1 10^3/uL (0.0-0.2); BASO % 0.5 % (0.0-1.0); EOS # 0.2 10^3/uL (0.0-0.5); EOS % 2.2 % (0.0-3.0); HEMATOCRIT 44.6 % (42.0-52.0); HEMOGLOBIN 14.9 g/dl (13.5-17.5); LYMPH # 3.2 10^3/uL (1.5-5.0); LYMPH % 29.1 % (24.0-44.0); MEAN CORPUSCULAR HEMOGLOBIN 30.9 pg (27.0-33.0); MEAN CORPUSCULAR HGB CONC 33.4 g/dl (32.0-36.5); MEAN CORPUSCULAR VOLUME 92.5 fl (80.0-96.0); MONO # 0.7 10^3/uL (0.0-0.8); MONO % 6.6 % (2.0-8.0); NEUTROPHILS # 6.8 10^3/uL (1.5-8.5); NEUTROPHILS % 61.3 % (36.0-66.0); PLATELET COUNT, AUTOMATED 278 10^3/uL (150-450); RED BLOOD COUNT 4.82 10^6/uL (4.30-6.10); WHITE BLOOD COUNT 11.1 10^3/uL (4.0-10.0)
[2021-06-05 16:58] LABS: ALBUMIN 3.7 GM/DL (3.2-5.2); ALT/SGPT 35 U/L (12-78); BILIRUBIN,TOTAL 0.5 MG/DL (0.2-1.0); BLOOD UREA NITROGEN 10 MG/DL (7-18); CALCIUM LEVEL 9.1 MG/DL (8.5-10.1); CARBON DIOXIDE LEVEL 36 MEQ/L (21-32); CHLORIDE LEVEL 98 MEQ/L (98-107); CHOLESTEROL LEVEL 164 MG/DL (<200); CREATININE, URINE 33.9 MG/DL; GLOMERULAR FILTRATION RATE > 60.0 (>56); GLUCOSE, FASTING 105 MG/DL (70-100); HDL CHOLESTEROL 31 MG/DL (>40); LDL CHOLESTEROL 109 MG/DL (<100); MALB URINE SIEMENS < 5.0 MG/L; MAU/CREAT RATIO 14.7 MCG/MG (0.0-30.0); NON-HDL-C 133 MG/DL; POTASSIUM SERUM 4.6 MEQ/L (3.5-5.1); SODIUM LEVEL 137 MEQ/L (136-145); THYROID STIMULATING HORMONE 0.461 uIU/ML (0.358-3.740); TOTAL PROTEIN 8.3 GM/DL (6.4-8.2); TRIGLYCERIDES LEVEL 121 MG/DL (<150)
[2021-06-05 17:06] LABS: HEMOGLOBIN A1c 6.2 %
== END ==
LOC: M SFHCADAM 13:29
PROVIDERS: ATTEND Physician Assistant Medical
DX: E11.51 Type 2 diabetes mellitus with diabetic peripheral angiopathy without gangrene (principal); I10 Essential (primary) hypertension; E78.2 Mixed hyperlipidemia

== ENCOUNTER 2021-06-14 17:53 | Inpatient (IN) | payer OTHER ==
[~2021-06-14] VITALS: Ht 180.3 cm; Wt 124.3 kg
[2021-06-14] MEDS ORDERED: ACETAMINOPHEN 650 MG SUPP PR ONE ×2 (18:50)
[2021-06-14] MEDS ORDERED: NS 3,930 ML in IV 1 EA IV ONE (18:55)
[2021-06-14] MEDS ORDERED: cefTRIAXone SOD 2 GM in D5W MINI-BAG PLUS 50 ML IV ONE (19:15)
[2021-06-14 19:18] LABS: BASO # 0.1 10^3/uL (0.0-0.2); BASO % 0.3 % (0.0-1.0); HEMOGLOBIN 14.9 g/dl (13.5-17.5); LYMPH # 1.1 10^3/uL (1.5-5.0); LYMPH % 4.5 % (24.0-44.0); MEAN CORPUSCULAR HEMOGLOBIN 30.1 pg (27.0-33.0); MEAN CORPUSCULAR HGB CONC 33.1 g/dl (32.0-36.5); MEAN CORPUSCULAR VOLUME 90.9 fl (80.0-96.0); MONO # 1.1 10^3/uL (0.0-0.8); MONO % 4.4 % (2.0-8.0); NEUTROPHILS # 22.7 10^3/uL (1.5-8.5); NEUTROPHILS % 89.7 % (36.0-66.0); PLATELET COUNT, AUTOMATED 239 10^3/uL (150-450); RED BLOOD COUNT 4.95 10^6/uL (4.30-6.10); WHITE BLOOD COUNT 25.3 10^3/uL (4.0-10.0)
[2021-06-14 19:29] LABS: INR 1.07; PROTHROMBIN TIME 14.3 SECONDS (12.7-14.5)
[2021-06-14 19:30] LABS: PARTIAL THROMBOPLASTIN TIME 35.3 SECONDS (25.9-37.0)
[2021-06-14 19:39] LABS: ABG BASE EXCESS 1.2 (-2.0-2.0); ABG HCO3 26.5 MEQ/L (22.0-26.0); ABG O2 SATURATION 95.1 % (95.0-99.0); ABG PARTIAL PRESSURE CO2 44.6 mmHg (35.0-45.0); ABG PARTIAL PRESSURE O2 69.1 mmHg (75.0-100.0); ABG STANDARD HCO3 25.5 MEQ/L (22.0-26.0); ABG TOTAL CO2 27.9 MEQ/L (22.0-29.0); ABG pH (ARTERIAL) 7.392 UNITS (7.350-7.450)
[2021-06-14 19:40] LABS: CK-MB VALUE MASS < 1.0 NG/ML (<3.6); CPK CREATINE PHOSPHOKINASE 35 U/L (39-308); MB/CK RELATIVE INDEX 2.86 (< OR =4)
[2021-06-14 19:46] LABS: BLOOD UREA NITROGEN 11 MG/DL (7-18); CARBON DIOXIDE LEVEL 31 MEQ/L (21-32); CHLORIDE LEVEL 102 MEQ/L (98-107); CREATININE FOR GFR 1.21 MG/DL (0.70-1.30); GLOMERULAR FILTRATION RATE > 60.0 (>56); GLUCOSE, FASTING 149 MG/DL (70-100); POTASSIUM SERUM 4.8 MEQ/L (3.5-5.1); SODIUM LEVEL 137 MEQ/L (136-145)
[2021-06-14 19:47] LABS: ALBUMIN 3.7 GM/DL (3.2-5.2); ALT/SGPT 43 U/L (12-78); AMYLASE 41 U/L (25-115); BILIRUBIN,DIRECT 0.1 MG/DL (0.0-0.2); BILIRUBIN,TOTAL 0.5 MG/DL (0.2-1.0); C REACTIVE PROTEIN QUANTITATIV 4.96 MG/DL (0.00-0.30); CALCIUM LEVEL 9.7 MG/DL (8.5-10.1); TOTAL PROTEIN 8.2 GM/DL (6.4-8.2)
[2021-06-14] MEDS ORDERED: ACETAMINOPHEN 325 MG TAB PO ONE (20:10)
[2021-06-15] MEDS ORDERED: ACETAMINOPHEN TAB 650MG DOSE (2X325MG) PO PRN (00:25)
[2021-06-15 00:45] LABS: RSV AMPLIFICATION NEGATIVE (NEGATIVE)
[2021-06-15] MEDS ORDERED: GLUCOSE 4GM CHEW TABLET PO PRN (00:50)
[2021-06-15] MEDS ORDERED: GLUCAGON INJ 1MG VIAL SC PRN (00:50)
[2021-06-15] MEDS ORDERED: DEXTROSE 50% 50 ML SYRINGE IV PRN (00:50)
[2021-06-15] MEDS ORDERED: VANCOMYCIN HCL 1,000 MG, VIAL MATE ADAPTER 1 EACH in NS 250 ML IV ONE ×2 (01:00→02:00)
[2021-06-15] MEDS ORDERED: ELIQ5TAB PO (01:44)
[2021-06-15] MEDS ORDERED: HOME MED LIST COMPLETE! XX SCH (01:45)
[2021-06-15] MEDS: HumaLOG INSULIN (NovoLOG) PER UNIT SC SCH ×5 (03:18→21:00)
[2021-06-15] MEDS ORDERED: hydrOXYzine 25 MG TAB PO PRN (03:25)
[2021-06-15] MEDS ORDERED: MORPHINE 4 MG/ML 1ML VIAL/SYRINGE IV PRN (03:30)
[2021-06-15] MEDS ORDERED: BUPRENORPHINE/NALOXONE 2-0.5MG SUBLINGUAL TABLET(SUBOXONE) SL ONE (03:45)
[2021-06-15] MEDS ORDERED: METHOCARBAMOL 1,000 MG/10 ML VIAL (J2800) IV ONE (04:00)
[2021-06-15] MEDS ORDERED: LR 1,000 ML IV SCH (05:00)
[2021-06-15] MEDS: PIPERACILLIN/TAZOBACTAM SOD 4.5 GM in D5W MINI-BAG PLUS 50 ML IV SCH ×4 (05:51→23:10)
[2021-06-15 07:31] LABS: BASO % 0.2 % (0.0-1.0); EOS % 0.1 % (0.0-3.0); HEMATOCRIT 35.8 % (42.0-52.0); LYMPH # 2.2 10^3/uL (1.5-5.0); LYMPH % 13.4 % (24.0-44.0); MEAN CORPUSCULAR HEMOGLOBIN 30.3 pg (27.0-33.0); MEAN CORPUSCULAR VOLUME 91.8 fl (80.0-96.0); MONO # 0.8 10^3/uL (0.0-0.8); MONO % 5.1 % (2.0-8.0); NEUTROPHILS # 13.3 10^3/uL (1.5-8.5); NEUTROPHILS % 80.6 % (36.0-66.0); PLATELET COUNT, AUTOMATED 175 10^3/uL (150-450); WHITE BLOOD COUNT 16.5 10^3/uL (4.0-10.0)
[2021-06-15 07:39] LABS: HEMOGLOBIN 11.8 g/dl (13.5-17.5)
[2021-06-15 07:59] LABS: ALBUMIN 2.5 GM/DL (3.2-5.2); ALT/SGPT 26 U/L (12-78); BILIRUBIN,TOTAL 0.5 MG/DL (0.2-1.0); BLOOD UREA NITROGEN 11 MG/DL (7-18); CALCIUM LEVEL 8.1 MG/DL (8.5-10.1); CARBON DIOXIDE LEVEL 28 MEQ/L (21-32); CHLORIDE LEVEL 105 MEQ/L (98-107); CREATININE FOR GFR 0.95 MG/DL (0.70-1.30); GLOMERULAR FILTRATION RATE > 60.0 (>56); GLUCOSE, FASTING 139 MG/DL (70-100); POTASSIUM SERUM 3.8 MEQ/L (3.5-5.1); SODIUM LEVEL 137 MEQ/L (136-145); TOTAL PROTEIN 6.6 GM/DL (6.4-8.2)
[2021-06-15 08:00] VITALS: BP 126/71
[2021-06-15] MEDS: BUPRENORPHINE/NALOXONE 8-2MG SUBLINGUAL TABLET(SUBOXONE) SL SCH (08:38)
[2021-06-15] MEDS: APIXABAN 5 MG TAB (ELIQUIS) PO SCH ×2 (08:38→20:35)
[2021-06-15] MEDS ORDERED: FUROSEMIDE 40 MG TAB PO SCH (09:00)
[2021-06-15] MEDS ORDERED: ENOXAPARIN 40MG/0.4ML SYRINGE (J1650 PER 10MG) SC SCH (09:00)
[2021-06-15] MEDS ORDERED: lisinopriL 40MG TAB PO SCH (09:00)
[2021-06-15] MEDS: PROPRANOLOL 10 MG TAB PO SCH ×2 (10:26→20:36)
[2021-06-15 12:00] VITALS: BP 117/66
[2021-06-15] MEDS: VANCOMYCIN HCL 1,000 MG, VIAL MATE ADAPTER 1 EACH in NS 250 ML IV SCH ×2 (12:33→19:40)
[2021-06-15 15:30] VITALS: BP 165/64
[2021-06-15 16:07] VITALS: BP 131/63
[2021-06-15] MEDS: BUPRENORPHINE/NALOXONE 2-0.5MG SUBLINGUAL TABLET(SUBOXONE) SL SCH (17:57)
[2021-06-15] MEDS: FUROSEMIDE 40MG/4ML VIAL (J1940) IV SCH (17:57)
[2021-06-15 20:15] VITALS: BP 124/61
[2021-06-16 03:14] LABS: BASO % 0.3 % (0.0-1.0); EOS # 0.2 10^3/uL (0.0-0.5); EOS % 1.3 % (0.0-3.0); HEMATOCRIT 35.8 % (42.0-52.0); HEMOGLOBIN 11.7 g/dl (13.5-17.5); LYMPH # 2.2 10^3/uL (1.5-5.0); MEAN CORPUSCULAR HEMOGLOBIN 30.2 pg (27.0-33.0); MEAN CORPUSCULAR HGB CONC 32.7 g/dl (32.0-36.5); MEAN CORPUSCULAR VOLUME 92.5 fl (80.0-96.0); NEUTROPHILS # 10.2 10^3/uL (1.5-8.5); NEUTROPHILS % 75.2 % (36.0-66.0); PLATELET COUNT, AUTOMATED 167 10^3/uL (150-450); RED BLOOD COUNT 3.87 10^6/uL (4.30-6.10); WHITE BLOOD COUNT 13.6 10^3/uL (4.0-10.0)
[2021-06-16 03:33] LABS: ALBUMIN 2.6 GM/DL (3.2-5.2); ALT/SGPT 24 U/L (12-78); BILIRUBIN,TOTAL 0.3 MG/DL (0.2-1.0); BLOOD UREA NITROGEN 12 MG/DL (7-18); CALCIUM LEVEL 7.9 MG/DL (8.5-10.1); CARBON DIOXIDE LEVEL 30 MEQ/L (21-32); CHLORIDE LEVEL 103 MEQ/L (98-107); CREATININE FOR GFR 1.03 MG/DL (0.70-1.30); GLOMERULAR FILTRATION RATE > 60.0 (>56); GLUCOSE, FASTING 140 MG/DL (70-100); POTASSIUM SERUM 3.7 MEQ/L (3.5-5.1); SODIUM LEVEL 138 MEQ/L (136-145); TOTAL PROTEIN 6.3 GM/DL (6.4-8.2)
[2021-06-16] MEDS: VANCOMYCIN HCL 1,000 MG, VIAL MATE ADAPTER 1 EACH in NS 250 ML IV SCH ×3 (03:49→20:28)
[2021-06-16] MEDS: PIPERACILLIN/TAZOBACTAM SOD 4.5 GM in D5W MINI-BAG PLUS 50 ML IV SCH ×4 (05:21→22:22)
[2021-06-16 05:56] VITALS: BP 114/59
[2021-06-16] MEDS: HumaLOG INSULIN (NovoLOG) PER UNIT SC SCH ×5 (08:35→20:20)
[2021-06-16] MEDS: APIXABAN 5 MG TAB (ELIQUIS) PO SCH ×2 (08:35→20:27)
[2021-06-16] MEDS: FUROSEMIDE 40MG/4ML VIAL (J1940) IV SCH ×2 (08:35→17:41)
[2021-06-16] MEDS: BUPRENORPHINE/NALOXONE 8-2MG SUBLINGUAL TABLET(SUBOXONE) SL SCH (08:35)
[2021-06-16] MEDS: PROPRANOLOL 10 MG TAB PO SCH ×2 (09:22→20:27)
[2021-06-16 14:00] VITALS: BP 128/66
[2021-06-16] MEDS: NICOTINE 21MG/24HR 1 EA TRANSDERMAL TD SCH (15:48)
[2021-06-16] MEDS: BUPRENORPHINE/NALOXONE 2-0.5MG SUBLINGUAL TABLET(SUBOXONE) SL SCH (17:41)
[2021-06-16 22:00] VITALS: BP 142/72
[2021-06-17] MEDS: VANCOMYCIN HCL 1,000 MG, VIAL MATE ADAPTER 1 EACH in NS 250 ML IV SCH ×3 (03:35→20:40)
[2021-06-17] MEDS: PIPERACILLIN/TAZOBACTAM SOD 4.5 GM in D5W MINI-BAG PLUS 50 ML IV SCH ×4 (04:42→22:03)
[2021-06-17 05:53] VITALS: BP 127/73
[2021-06-17 06:18] LABS: BASO % 0.4 % (0.0-1.0); EOS # 0.2 10^3/uL (0.0-0.5); LYMPH # 2.5 10^3/uL (1.5-5.0); LYMPH % 21.8 % (24.0-44.0); MEAN CORPUSCULAR HEMOGLOBIN 30.2 pg (27.0-33.0); MEAN CORPUSCULAR HGB CONC 32.4 g/dl (32.0-36.5); MONO # 0.8 10^3/uL (0.0-0.8); MONO % 7.4 % (2.0-8.0); NEUTROPHILS # 7.7 10^3/uL (1.5-8.5); PLATELET COUNT, AUTOMATED 193 10^3/uL (150-450); RED BLOOD COUNT 3.98 10^6/uL (4.30-6.10); WHITE BLOOD COUNT 11.3 10^3/uL (4.0-10.0)
[2021-06-17 07:04] LABS: ALBUMIN 2.7 GM/DL (3.2-5.2); ALT/SGPT 20 U/L (12-78); BILIRUBIN,TOTAL 0.5 MG/DL (0.2-1.0); BLOOD UREA NITROGEN 10 MG/DL (7-18); CALCIUM LEVEL 8.6 MG/DL (8.5-10.1); CARBON DIOXIDE LEVEL 30 MEQ/L (21-32); CHLORIDE LEVEL 104 MEQ/L (98-107); CREATININE FOR GFR 0.82 MG/DL (0.70-1.30); GLOMERULAR FILTRATION RATE > 60.0 (>56); GLUCOSE, FASTING 92 MG/DL (70-100); POTASSIUM SERUM 3.6 MEQ/L (3.5-5.1); SODIUM LEVEL 140 MEQ/L (136-145); TOTAL PROTEIN 6.7 GM/DL (6.4-8.2)
[2021-06-17] MEDS: HumaLOG INSULIN (NovoLOG) PER UNIT SC SCH ×4 (07:30→20:39)
[2021-06-17] MEDS: APIXABAN 5 MG TAB (ELIQUIS) PO SCH ×2 (09:47→20:41)
[2021-06-17] MEDS: BUPRENORPHINE/NALOXONE 8-2MG SUBLINGUAL TABLET(SUBOXONE) SL SCH (09:47)
[2021-06-17] MEDS: FUROSEMIDE 40MG/4ML VIAL (J1940) IV SCH ×2 (09:47→17:30)
[2021-06-17] MEDS: NICOTINE 21MG/24HR 1 EA TRANSDERMAL TD SCH (09:48)
[2021-06-17] MEDS: PROPRANOLOL 10 MG TAB PO SCH ×2 (09:50→20:42)
[2021-06-17 14:00] VITALS: BP 147/79
[2021-06-17] MEDS: LACTIC ACID 12% LOTION 225 GM BTL TOP SCH ×2 (14:34→20:43)
[2021-06-17] MEDS: BUPRENORPHINE/NALOXONE 2-0.5MG SUBLINGUAL TABLET(SUBOXONE) SL SCH (17:29)
[2021-06-17 19:03] VITALS: BP 138/83
[2021-06-18] MEDS: FUROSEMIDE 40MG/4ML VIAL (J1940) IV SCH ×3 (01:00→16:35)
[2021-06-18] MEDS: VANCOMYCIN HCL 1,000 MG, VIAL MATE ADAPTER 1 EACH in NS 250 ML IV SCH ×3 (03:25→20:13)
[2021-06-18] MEDS: PIPERACILLIN/TAZOBACTAM SOD 4.5 GM in D5W MINI-BAG PLUS 50 ML IV SCH ×4 (04:35→23:46)
[2021-06-18 05:42] LABS: BASO # 0.1 10^3/uL (0.0-0.2); BASO % 0.6 % (0.0-1.0); EOS # 0.4 10^3/uL (0.0-0.5); EOS % 4.1 % (0.0-3.0); HEMATOCRIT 39.2 % (42.0-52.0); HEMOGLOBIN 12.9 g/dl (13.5-17.5); LYMPH # 2.2 10^3/uL (1.5-5.0); LYMPH % 25.5 % (24.0-44.0); MEAN CORPUSCULAR HEMOGLOBIN 30.4 pg (27.0-33.0); MEAN CORPUSCULAR HGB CONC 32.9 g/dl (32.0-36.5); MEAN CORPUSCULAR VOLUME 92.5 fl (80.0-96.0); MONO # 0.7 10^3/uL (0.0-0.8); MONO % 7.8 % (2.0-8.0); NEUTROPHILS # 5.4 10^3/uL (1.5-8.5); NEUTROPHILS % 61.4 % (36.0-66.0); PLATELET COUNT, AUTOMATED 240 10^3/uL (150-450); RED BLOOD COUNT 4.24 10^6/uL (4.30-6.10); WHITE BLOOD COUNT 8.8 10^3/uL (4.0-10.0)
[2021-06-18 05:52] LABS: ALBUMIN 2.9 GM/DL (3.2-5.2); ALT/SGPT 24 U/L (12-78); BILIRUBIN,TOTAL 0.5 MG/DL (0.2-1.0); BLOOD UREA NITROGEN 9 MG/DL (7-18); CALCIUM LEVEL 8.8 MG/DL (8.5-10.1); CARBON DIOXIDE LEVEL 31 MEQ/L (21-32); CHLORIDE LEVEL 104 MEQ/L (98-107); CREATININE FOR GFR 0.89 MG/DL (0.70-1.30); GLOMERULAR FILTRATION RATE > 60.0 (>56); GLUCOSE, FASTING 104 MG/DL (70-100); POTASSIUM SERUM 3.7 MEQ/L (3.5-5.1); SODIUM LEVEL 140 MEQ/L (136-145); TOTAL PROTEIN 7.3 GM/DL (6.4-8.2)
[2021-06-18 06:00] VITALS: BP 121/73
[2021-06-18] MEDS: HumaLOG INSULIN (NovoLOG) PER UNIT SC SCH ×4 (07:30→20:19)
[2021-06-18] MEDS: BUPRENORPHINE/NALOXONE 8-2MG SUBLINGUAL TABLET(SUBOXONE) SL SCH (09:38)
[2021-06-18] MEDS: PROPRANOLOL 10 MG TAB PO SCH ×2 (09:38→20:18)
[2021-06-18] MEDS: APIXABAN 5 MG TAB (ELIQUIS) PO SCH ×2 (09:38→20:18)
[2021-06-18] MEDS: NICOTINE 21MG/24HR 1 EA TRANSDERMAL TD SCH (09:39)
[2021-06-18] MEDS: LACTIC ACID 12% LOTION 225 GM BTL TOP SCH ×2 (09:40→20:20)
[2021-06-18 14:00] VITALS: BP 127/77
[2021-06-18] MEDS: BUPRENORPHINE/NALOXONE 2-0.5MG SUBLINGUAL TABLET(SUBOXONE) SL SCH (16:34)
[2021-06-18 18:00] VITALS: BP 145/82
[2021-06-18 22:00] VITALS: BP 145/84
[2021-06-19] MEDS: VANCOMYCIN HCL 1,000 MG, VIAL MATE ADAPTER 1 EACH in NS 250 ML IV SCH (03:57)
[2021-06-19] MEDS: PIPERACILLIN/TAZOBACTAM SOD 4.5 GM in D5W MINI-BAG PLUS 50 ML IV SCH (05:31)
[2021-06-19 06:00] VITALS: BP 137/78
[2021-06-19 06:43] LABS: BASO # 0.1 10^3/uL (0.0-0.2); BASO % 0.7 % (0.0-1.0); EOS # 0.4 10^3/uL (0.0-0.5); HEMATOCRIT 40.6 % (42.0-52.0); HEMOGLOBIN 13.2 g/dl (13.5-17.5); LYMPH # 2.5 10^3/uL (1.5-5.0); LYMPH % 26.1 % (24.0-44.0); MEAN CORPUSCULAR HEMOGLOBIN 30.1 pg (27.0-33.0); MEAN CORPUSCULAR HGB CONC 32.5 g/dl (32.0-36.5); MEAN CORPUSCULAR VOLUME 92.5 fl (80.0-96.0); MONO # 0.7 10^3/uL (0.0-0.8); MONO % 6.8 % (2.0-8.0); NEUTROPHILS # 5.9 10^3/uL (1.5-8.5); NEUTROPHILS % 61.8 % (36.0-66.0); PLATELET COUNT, AUTOMATED 255 10^3/uL (150-450); RED BLOOD COUNT 4.39 10^6/uL (4.30-6.10); WHITE BLOOD COUNT 9.6 10^3/uL (4.0-10.0)
[2021-06-19 07:18] LABS: ALT/SGPT 24 U/L (12-78); BILIRUBIN,TOTAL 0.6 MG/DL (0.2-1.0); BLOOD UREA NITROGEN 12 MG/DL (7-18); CALCIUM LEVEL 9.5 MG/DL (8.5-10.1); CARBON DIOXIDE LEVEL 32 MEQ/L (21-32); CHLORIDE LEVEL 102 MEQ/L (98-107); CREATININE FOR GFR 1.04 MG/DL (0.70-1.30); GLOMERULAR FILTRATION RATE > 60.0 (>56); GLUCOSE, FASTING 96 MG/DL (70-100); POTASSIUM SERUM 4.1 MEQ/L (3.5-5.1); SODIUM LEVEL 141 MEQ/L (136-145); TOTAL PROTEIN 7.6 GM/DL (6.4-8.2)
[2021-06-19] MEDS: HumaLOG INSULIN (NovoLOG) PER UNIT SC SCH (07:30)
[2021-06-19] MEDS: APIXABAN 5 MG TAB (ELIQUIS) PO SCH (09:27)
[2021-06-19] MEDS: NICOTINE 21MG/24HR 1 EA TRANSDERMAL TD SCH (09:27)
[2021-06-19] MEDS: BUPRENORPHINE/NALOXONE 8-2MG SUBLINGUAL TABLET(SUBOXONE) SL SCH (09:27)
[2021-06-19 09:28] VITALS: BP 141/86
[2021-06-19] MEDS: PROPRANOLOL 10 MG TAB PO SCH (09:28)
[2021-06-19] MEDS ORDERED: FURO40TA2 PO (09:31)
[2021-06-19] MEDS ORDERED: SPIR-10 PO (09:31)
[2021-06-19] MEDS ORDERED: CEFU50TA PO (09:31)
[2021-06-19] MEDS: LACTIC ACID 12% LOTION 225 GM BTL TOP SCH (09:37)
[2021-06-19] MEDS: FUROSEMIDE 40MG/4ML VIAL (J1940) IV SCH (09:43)
== END 2021-06-19 11:17 | disposition home or self-care (01) | DRG 720 ==
LOC: EDBD 17:53 → M ED 17:53 → M ED INP 23:29 → ENRESERV 06-15 06:49 → M ICU 06-15 07:57 → M MSPAV 06-15 16:05
PROVIDERS: ADMIT Family Medicine; ATTEND Internal Medicine Nephrology
DX: A41.9 Sepsis, unspecified organism (principal); G93.41 Metabolic encephalopathy; D69.6 Thrombocytopenia, unspecified; E11.42 Type 2 diabetes mellitus with diabetic polyneuropathy; F11.20 Opioid dependence, uncomplicated; I44.1 Atrioventricular block, second degree; E66.01 Morbid (severe) obesity due to excess calories; E87.70 Fluid overload, unspecified; R16.0 Hepatomegaly, not elsewhere classified; I48.91 Unspecified atrial fibrillation; I48.92 Unspecified atrial flutter; K74.60 Unspecified cirrhosis of liver; K76.0 Fatty (change of) liver, not elsewhere classified; E78.2 Mixed hyperlipidemia; F17.210 Nicotine dependence, cigarettes, uncomplicated; H91.93 Unspecified hearing loss, bilateral; I10 Essential (primary) hypertension; J98.11 Atelectasis; L03.115 Cellulitis of right lower limb; M48.00 Spinal stenosis, site unspecified; N40.0 Benign prostatic hyperplasia without lower urinary tract symptoms; R91.8 Other nonspecific abnormal finding of lung field; Z68.39 Body mass index [BMI] 39.0-39.9, adult; Z79.01 Long term (current) use of anticoagulants; Z79.899 Other long term (current) drug therapy

== ENCOUNTER → 2021-07-24 | Outpatient (CLI) | payer OTHER ==
[~2021-07-24] MED LIST changes: +CEFU50TA PO; +ELIQ5TAB PO; +SPIR-10 PO
== END ==
LOC: M PLARAD 10:13
PROVIDERS: ATTEND Psychiatry & Neurology Neurology
DX: R91.8 Other nonspecific abnormal finding of lung field (principal)
CPT/HCPCS: 78815; A9552

== ENCOUNTER 2021-09-06 19:04 | Emergency (ER) | payer OTHER ==
[~2021-09-06] VITALS: Ht 180.3 cm; Wt 130.3 kg
[2021-09-06 19:05] VITALS: BP 145/82
[2021-09-06 22:11] LABS: BASO # 0.1 10^3/uL (0.0-0.2); BASO % 0.7 % (0.0-1.0); EOS # 0.3 10^3/uL (0.0-0.5); HEMATOCRIT 44.7 % (42.0-52.0); HEMOGLOBIN 14.7 g/dl (13.5-17.5); LYMPH # 3.1 10^3/uL (1.5-5.0); LYMPH % 31.8 % (24.0-44.0); MEAN CORPUSCULAR HEMOGLOBIN 30.2 pg (27.0-33.0); MEAN CORPUSCULAR HGB CONC 32.9 g/dl (32.0-36.5); MONO # 0.7 10^3/uL (0.0-0.8); MONO % 7.2 % (2.0-8.0); NEUTROPHILS # 5.4 10^3/uL (1.5-8.5); NEUTROPHILS % 56.9 % (36.0-66.0); PLATELET COUNT, AUTOMATED 196 10^3/uL (150-450); RED BLOOD COUNT 4.86 10^6/uL (4.30-6.10); WHITE BLOOD COUNT 9.6 10^3/uL (4.0-10.0)
[2021-09-06 22:34] LABS: BLOOD UREA NITROGEN 13 MG/DL (7-18); C REACTIVE PROTEIN QUANTITATIV 0.64 MG/DL (0.00-0.30); CALCIUM LEVEL 9.2 MG/DL (8.5-10.1); CARBON DIOXIDE LEVEL 31 MEQ/L (21-32); CHLORIDE LEVEL 103 MEQ/L (98-107); CREATININE FOR GFR 1.19 MG/DL (0.70-1.30); GLOMERULAR FILTRATION RATE > 60.0 (>56); GLUCOSE, FASTING 92 MG/DL (70-100); POTASSIUM SERUM 4.4 MEQ/L (3.5-5.1); SODIUM LEVEL 138 MEQ/L (136-145)
[2021-09-06 22:49] LABS: ERYTHROCYTE SEDIMENTATION RATE 28 mm/hr (0-20)
== END 2021-09-07 03:34 | disposition left against medical advice (07) ==
LOC: M ED 19:04
DX: Z53.21 Procedure and treatment not carried out due to patient leaving prior to being seen by health care provider (principal)

== ENCOUNTER 2021-11-04 14:08 | Emergency (ER) | payer OTHER ==
[~2021-11-04] VITALS: Ht 180.3 cm; Wt 127.9 kg
[2021-11-04] MEDS ORDERED: SUBL100I (14:19)
[2021-11-04] MEDS ORDERED: FURO40TA2 PO (14:19)
[2021-11-04] MEDS ORDERED: ceFAZolin SOD 2 GM in IV 1 EA IV ONE (14:55)
[2021-11-04 15:13] LABS: BASO % 0.4 % (0.0-1.0); EOS # 0.3 10^3/uL (0.0-0.5); EOS % 2.8 % (0.0-3.0); HEMATOCRIT 39.9 % (42.0-52.0); HEMOGLOBIN 13.2 g/dl (13.5-17.5); LYMPH # 2.5 10^3/uL (1.5-5.0); LYMPH % 25.4 % (24.0-44.0); MEAN CORPUSCULAR HEMOGLOBIN 29.8 pg (27.0-33.0); MEAN CORPUSCULAR HGB CONC 33.1 g/dl (32.0-36.5); MEAN CORPUSCULAR VOLUME 90.1 fl (80.0-96.0); MONO # 0.7 10^3/uL (0.0-0.8); MONO % 6.9 % (2.0-8.0); NEUTROPHILS # 6.3 10^3/uL (1.5-8.5); NEUTROPHILS % 64.2 % (36.0-66.0); PLATELET COUNT, AUTOMATED 207 10^3/uL (150-450); RED BLOOD COUNT 4.43 10^6/uL (4.30-6.10); WHITE BLOOD COUNT 9.9 10^3/uL (4.0-10.0)
[2021-11-04 15:56] LABS: BLOOD UREA NITROGEN 15 MG/DL (7-18); CALCIUM LEVEL 8.9 MG/DL (8.5-10.1); CARBON DIOXIDE LEVEL 33 MEQ/L (21-32); CHLORIDE LEVEL 99 MEQ/L (98-107); CREATININE FOR GFR 1.19 MG/DL (0.70-1.30); GLOMERULAR FILTRATION RATE > 60.0 (>56); GLUCOSE, FASTING 136 MG/DL (70-100); POTASSIUM SERUM 4.4 MEQ/L (3.5-5.1); SODIUM LEVEL 134 MEQ/L (136-145)
[2021-11-04] MEDS ORDERED: CEPH500C PO (15:57)
[2021-11-04 16:06] VITALS: BP 123/66
== END 2021-11-04 16:09 | disposition home or self-care (01) ==
LOC: M ED 14:08
DX: L03.116 Cellulitis of left lower limb (principal); D64.9 Anemia, unspecified; I10 Essential (primary) hypertension; F17.200 Nicotine dependence, unspecified, uncomplicated; M54.50 Low back pain, unspecified; Z79.01 Long term (current) use of anticoagulants; Z79.811 Long term (current) use of aromatase inhibitors; Z79.899 Other long term (current) drug therapy; Z86.16 Personal history of COVID-19
CPT/HCPCS: 80048; 85025; 87040; 96365; 99283; J0690

== ENCOUNTER → 2021-12-13 | Outpatient (REF) | payer OTHER ==
[~2021-12-13] MED LIST changes: -DOXY-350 PO; +DOXY-444 PO; +SUBL100I
[2021-12-13 17:27] LABS: BASO # 0.1 10^3/uL (0.0-0.2); BASO % 0.7 % (0.0-1.0); EOS # 0.4 10^3/uL (0.0-0.5); EOS % 3.6 % (0.0-3.0); HEMATOCRIT 45.2 % (42.0-52.0); HEMOGLOBIN 14.4 g/dl (13.5-17.5); LYMPH # 3.5 10^3/uL (1.5-5.0); LYMPH % 33.2 % (24.0-44.0); MEAN CORPUSCULAR HEMOGLOBIN 29.7 pg (27.0-33.0); MEAN CORPUSCULAR HGB CONC 31.9 g/dl (32.0-36.5); MEAN CORPUSCULAR VOLUME 93.2 fl (80.0-96.0); MONO # 0.7 10^3/uL (0.0-0.8); MONO % 7.1 % (2.0-8.0); NEUTROPHILS # 5.7 10^3/uL (1.5-8.5); PLATELET COUNT, AUTOMATED 224 10^3/uL (150-450); RED BLOOD COUNT 4.85 10^6/uL (4.30-6.10); WHITE BLOOD COUNT 10.4 10^3/uL (4.0-10.0)
[2021-12-13 19:16] LABS: CREATININE, URINE 69.7 MG/DL; MALB URINE SIEMENS < 5.0 MG/L; MAU/CREAT RATIO 7.1 MCG/MG (0.0-30.0)
[2021-12-13 19:21] LABS: ALT/SGPT 41 U/L (12-78); BILIRUBIN,TOTAL 0.4 MG/DL (0.2-1.0); BLOOD UREA NITROGEN 19 MG/DL (7-18); CALCIUM LEVEL 9.5 MG/DL (8.5-10.1); CARBON DIOXIDE LEVEL 30 MEQ/L (21-32); CHLORIDE LEVEL 98 MEQ/L (98-107); CHOLESTEROL LEVEL 181 MG/DL (<200); CHOLESTEROL RISK RATIO 5.323 (<5); CREATININE FOR GFR 1.25 MG/DL (0.70-1.30); GLOMERULAR FILTRATION RATE > 60.0 (>56); GLUCOSE, FASTING 101 MG/DL (70-100); HDL CHOLESTEROL 34 MG/DL (>40); LDL CHOLESTEROL 110 MG/DL (<100); NON-HDL-C 147 MG/DL; POTASSIUM SERUM 4.5 MEQ/L (3.5-5.1); SODIUM LEVEL 134 MEQ/L (136-145); TOTAL PROTEIN 8.5 GM/DL (6.4-8.2); TRIGLYCERIDES LEVEL 185 MG/DL (<150)
[2021-12-13 20:51] LABS: HEMOGLOBIN A1c 6.2 %
== END ==
LOC: M SFHCADAM 13:46
PROVIDERS: ATTEND Physician Assistant Medical
DX: K74.60 Unspecified cirrhosis of liver (principal); E11.51 Type 2 diabetes mellitus with diabetic peripheral angiopathy without gangrene

== ENCOUNTER → 2022-01-01 | Outpatient (CLI) | payer OTHER ==
[~2022-01-01] MED LIST changes: +PROHANCE 279.3MG/ML 15ML VIAL ONE; +PROHANCE 279.3MG/ML 5ML VIAL ONE
== END ==
LOC: M PLAIMG 09:33
PROVIDERS: ATTEND Physician Assistant Medical
DX: R91.8 Other nonspecific abnormal finding of lung field (principal); K74.60 Unspecified cirrhosis of liver

== ENCOUNTER → 2022-04-10 | Outpatient (REF) | payer OTHER ==
[~2022-04-10] MED LIST changes: -PROHANCE 279.3MG/ML 15ML VIAL ONE; -PROHANCE 279.3MG/ML 5ML VIAL ONE
[2022-04-10 16:30] LABS: APPEARANCE, URINE CLEAR (CLEAR); BACTERIA, URINE AUTO NEGATIVE (NEGATIVE); BILIRUBIN, URINE AUTO NEGATIVE (NEGATIVE); BLOOD, URINE BLOOD 1+ (NEGATIVE); COLOR, URINE YELLOW (YELLOW); GLUCOSE, URINE (UA) AUTO NEGATIVE (NEGATIVE); KETONE, URINE AUTO TRACE mg/dL (NEGATIVE); LEUKOCYTE ESTERASE, URINE AUTO NEGATIVE (NEGATIVE); MUCUS, URINE SMALL (NEGATIVE); NITRITE, URINE AUTO NEGATIVE (NEGATIVE); PROTEIN, URINE AUTO NEGATIVE (NEGATIVE); RBC, URINE AUTO 9 /HPF (0-3); SPECIFIC GRAVITY URINE AUTO 1.023 (1.002-1.035); SQUAMOUS EPITHELIAL CELL UR AU 0 /HPF (0-6); UROBILINOGEN, URINE AUTO 0.2 mg/dL (0.0-2.0); WBC, URINE AUTO 0 /HPF (0-3)
[2022-04-10 17:06] LABS: HEMATOCRIT 42.5 % (42.0-52.0); HEMOGLOBIN 13.8 g/dl (13.5-17.5); MEAN CORPUSCULAR HGB CONC 32.5 g/dl (32.0-36.5); MEAN CORPUSCULAR VOLUME 92.4 fl (80.0-96.0); PLATELET COUNT, AUTOMATED 230 10^3/uL (150-450); WHITE BLOOD COUNT 11.8 10^3/uL (4.0-10.0)
[2022-04-10 17:42] LABS: FREE T4 1.15 NG/DL (0.89-1.76)
[2022-04-10 17:43] LABS: THYROID STIMULATING HORMONE 0.787 uIU/ML (0.55-4.78)
[2022-04-10 17:47] LABS: TOTAL 25(OH) VITAMIN D 26.4 NG/ML (20.0-100.0)
[2022-04-10 18:45] LABS: ALBUMIN 3.8 G/DL (3.2-5.2); ALKALINE PHOSPHATASE 86 U/L (46-116); ALT/SGPT 50 U/L (7.0-40); AST/SGOT 40 U/L (<34); BILIRUBIN,TOTAL 0.2 MG/DL (0.3-1.2); BLOOD UREA NITROGEN 16 MG/DL (9-23); CALCIUM LEVEL 8.7 MG/DL (8.5-10.1); CARBON DIOXIDE LEVEL 31 MMOL/L (20-31); CHLORIDE LEVEL 101 MMOL/L (98-107); CHOLESTEROL LEVEL 177 MG/DL (<200); GLUCOSE, FASTING 90 MG/DL (60-100); HDL CHOLESTEROL 34.7 MG/DL (>40); LDL CHOLESTEROL 98.9 MG/DL (<100); NON-HDL-C 142 MG/DL; POTASSIUM SERUM 4.8 MMOL/L (3.5-5.1); SODIUM LEVEL 137 MMOL/L (136-145); TOTAL PROTEIN 7.7 G/DL (5.7-8.2); TRIGLYCERIDES LEVEL 217 MG/DL (<150)
[2022-04-10 20:07] LABS: CREATININE FOR GFR 0.94 MG/DL (0.70-1.30); GLOMERULAR FILTRATION RATE > 60.0 (>56)
[2022-04-10 20:16] LABS: CREATININE, URINE 162.4 MG/DL; MAU/CREAT RATIO 2.4 MCG/MG (0.0-30.0)
[2022-04-10 21:58] LABS: HEMOGLOBIN A1c 6.4 % (4.0-6.0)
== END ==
LOC: M SFHCADAM 11:20
PROVIDERS: ATTEND Physician Assistant Medical
DX: K74.60 Unspecified cirrhosis of liver (principal); E11.51 Type 2 diabetes mellitus with diabetic peripheral angiopathy without gangrene; N40.1 Benign prostatic hyperplasia with lower urinary tract symptoms

== ENCOUNTER → 2022-04-25 | Outpatient (CLI) | payer OTHER ==
[~2022-04-25] MED LIST changes: +SIMV20TA22 PO; +SPIR50TA4 PO; +TRUL10IN SC
== END ==
LOC: M LABSMTC 08:09
PROVIDERS: ATTEND Anesthesiology
DX: Z01.818 Encounter for other preprocedural examination (principal)

== ENCOUNTER → 2022-05-04 | Outpatient (CLI) | payer OTHER | LOC: M SLEEP 20:00 | PROVIDERS: ATTEND Internal Medicine Critical Care Medicine | DX: G47.30 Sleep apnea, unspecified (principal) ==

== ENCOUNTER 2022-05-29 08:05 | Day surgery (SDC) | payer OTHER ==
[~2022-05-29] VITALS: Ht 180.3 cm; Wt 130.2 kg
[~2022-05-29 08:05] MED LIST changes: +NS 1,000 ML IV ONE
[2022-05-29] MEDS ORDERED: IPRATROPIUM 0.5MG/ALBUTEROL 2.5MG INH SOL UD 3ML (DUONEB) NEB STA (09:04)
[2022-05-29] MEDS ORDERED: propofoL 200 MG/20 ML VIAL As Ordered ONE ×2 (10:07→10:28)
[2022-05-29 11:10] VITALS: BP 115/58
== END 2022-05-29 11:30 | disposition home or self-care (01) ==
LOC: M OPP 08:05
PROVIDERS: ATTEND Internal Medicine Gastroenterology
DX: Z12.11 Encounter for screening for malignant neoplasm of colon (principal); K21.00 Gastro-esophageal reflux disease with esophagitis, without bleeding; K29.70 Gastritis, unspecified, without bleeding; K31.89 Other diseases of stomach and duodenum; K76.6 Portal hypertension; Z79.01 Long term (current) use of anticoagulants; Z79.02 Long term (current) use of antithrombotics/antiplatelets; Z79.84 Long term (current) use of oral hypoglycemic drugs; Z79.891 Long term (current) use of opiate analgesic; Z79.899 Other long term (current) drug therapy; G47.33 Obstructive sleep apnea (adult) (pediatric); F17.200 Nicotine dependence, unspecified, uncomplicated

== ENCOUNTER → 2022-06-08 | Outpatient (CLI) | payer OTHER ==
[~2022-06-08] MED LIST changes: -NS 1,000 ML IV ONE
[2022-06-08 13:12] LABS: INR 1.13; PROTHROMBIN TIME 14.7 SECONDS (12.5-14.5)
[2022-06-08 14:08] LABS: PLATELET COUNT, AUTOMATED 234 10^3/uL (150-450)
[2022-06-08 14:37] LABS: IRON (FE) 67 UG/DL (65-175)
[2022-06-08 14:38] LABS: ALBUMIN 3.9 G/DL (3.2-5.2); ALKALINE PHOSPHATASE 80 U/L (46-116); ALT/SGPT 42 U/L (7.0-40); AST/SGOT 29 U/L (<34); BILIRUBIN,DIRECT 0.1 MG/DL (<0.4); BILIRUBIN,TOTAL 0.3 MG/DL (0.3-1.2); TOTAL IRON BINDING CAPACITY 319 UG/DL (250-425); TOTAL PROTEIN 7.3 G/DL (5.7-8.2)
[2022-06-08 14:51] LABS: HEPATITIS B SURFACE ANTIGEN NEGATIVE (NEGATIVE)
[2022-06-08 15:12] LABS: HEPATITIS C VIRUS ABY INDEX 0.1 INDEX (<0.8)
[2022-06-12 09:07] LABS: ANTI-MITOCHONDRIAL ANTIBODY <20.0 Units (0.0-20.0); ANTINUCLEAR ANTIBODIES DIRECT Negative (Negative); HEPATITIS A IgG TOTAL Positive (Negative); LIVER-KIDNEY MICROSOMAL ABY <20.1 Units (0.0-20.0)
== END ==
LOC: M ADAMS 07:46
PROVIDERS: ATTEND Internal Medicine Gastroenterology
DX: K76.0 Fatty (change of) liver, not elsewhere classified (principal)

== ENCOUNTER → 2022-06-13 | Outpatient (REF) | payer OTHER | LOC: M LAB REF 11:31 | PROVIDERS: ATTEND Internal Medicine Gastroenterology | DX: K76.0 Fatty (change of) liver, not elsewhere classified (principal) ==

== ENCOUNTER → 2022-07-26 | Outpatient (REF) | payer OTHER ==
[2022-07-26 14:59] LABS: BASO # 0.1 10^3/uL (0.0-0.2); BASO % 0.8 % (0.0-1.0); EOS # 0.3 10^3/uL (0.0-0.5); EOS % 3.5 % (0.0-3.0); HEMATOCRIT 36.2 % (42.0-52.0); HEMOGLOBIN 11.9 g/dl (13.5-17.5); LYMPH # 3.4 10^3/uL (1.5-5.0); MEAN CORPUSCULAR HGB CONC 32.9 g/dl (32.0-36.5); MEAN CORPUSCULAR VOLUME 94.3 fl (80.0-96.0); MONO # 0.9 10^3/uL (0.0-0.8); MONO % 9.1 % (2.0-8.0); NEUTROPHILS # 5.1 10^3/uL (1.5-8.5); NEUTROPHILS % 52.3 % (36.0-66.0); PLATELET COUNT, AUTOMATED 237 10^3/uL (150-450); RED BLOOD COUNT 3.84 10^6/uL (4.30-6.10); WHITE BLOOD COUNT 9.8 10^3/uL (4.0-10.0)
[2022-07-26 15:15] LABS: HEMOGLOBIN A1c 5.8 % (4.0-6.0)
[2022-07-26 15:50] LABS: ALBUMIN 3.8 G/DL (3.2-5.2); BILIRUBIN,TOTAL 0.3 MG/DL (0.3-1.2); CALCIUM LEVEL 10.1 MG/DL (8.5-10.1); CREATININE FOR GFR 1.64 MG/DL (0.70-1.30); GLOMERULAR FILTRATION RATE 47.2 (>56); TOTAL PROTEIN 7.4 G/DL (5.7-8.2)
[2022-07-26 16:10] LABS: TOTAL 25(OH) VITAMIN D 20.3 NG/ML (20.0-100.0)
[2022-07-26 16:11] LABS: THYROID STIMULATING HORMONE 0.422 uIU/ML (0.55-4.78)
== END ==
LOC: M SFHCADAM 09:36
PROVIDERS: ATTEND Physician Assistant Medical
DX: E11.51 Type 2 diabetes mellitus with diabetic peripheral angiopathy without gangrene (principal); E78.2 Mixed hyperlipidemia; I10 Essential (primary) hypertension

== ENCOUNTER → 2022-08-01 | Outpatient (CLI) | payer OTHER | LOC: M RAD 17:47 | PROVIDERS: ATTEND Internal Medicine Critical Care Medicine | DX: R91.8 Other nonspecific abnormal finding of lung field (principal) ==

== ENCOUNTER 2022-08-14 06:37 | Day surgery (SDC) | payer OTHER ==
[~2022-08-14] VITALS: Ht 180.3 cm; Wt 128.5 kg
[~2022-08-14 06:37] MED LIST changes: +NS 1,000 ML IV ONE
[2022-08-14] MEDS ORDERED: LIDOCAINE 2% 100MG/5ML SDV (FOR ANES.) As Ordered ONE (07:12)
[2022-08-14] MEDS ORDERED: propofoL 500 MG/50 ML VIAL As Ordered ONE (07:12)
[2022-08-14] MEDS ORDERED: fentaNYL 100 MCG/2 ML INJECTION As Ordered ONE (07:13)
[2022-08-14 08:54] VITALS: BP 125/64; TEMP 97; O2SAT 97
== END 2022-08-14 09:07 | disposition home or self-care (01) ==
LOC: M OPP 06:37
PROVIDERS: ATTEND Internal Medicine Gastroenterology
DX: Z12.11 Encounter for screening for malignant neoplasm of colon (principal); Z86.010 Personal history of colon polyps; D12.2 Benign neoplasm of ascending colon; K64.4 Residual hemorrhoidal skin tags; K64.8 Other hemorrhoids; K21.00 Gastro-esophageal reflux disease with esophagitis, without bleeding; K29.70 Gastritis, unspecified, without bleeding; K31.7 Polyp of stomach and duodenum; K31.89 Other diseases of stomach and duodenum; K22.89 Other specified disease of esophagus; F17.220 Nicotine dependence, chewing tobacco, uncomplicated; Z79.01 Long term (current) use of anticoagulants; Z79.84 Long term (current) use of oral hypoglycemic drugs; Z79.899 Other long term (current) drug therapy
CPT/HCPCS: 43239; 43251; 45385; 88305; J3010

== ENCOUNTER → 2022-08-15 | Outpatient (REF) ==
[~2022-08-15] MED LIST changes: -NS 1,000 ML IV ONE
== END ==
LOC: M PLAIMG 09:40
PROVIDERS: ATTEND Internal Medicine
DX: M51.36 Other intervertebral disc degeneration, lumbar region (principal)

== ENCOUNTER → 2023-03-28 | Outpatient (REF) | payer OTHER ==
[~2023-03-28] MED LIST changes: +CEFD1CAP9 PO; -CEFD300C41 PO
[2023-03-28 14:41] LABS: BASO # 0.1 10^3/uL (0.0-0.2); BASO % 0.8 % (0.0-1.0); EOS # 0.3 10^3/uL (0.0-0.5); EOS % 3.4 % (0.0-3.0); HEMATOCRIT 42.4 % (42.0-52.0); HEMOGLOBIN 13.9 g/dl (13.5-17.5); LYMPH # 3.5 10^3/uL (1.5-5.0); MEAN CORPUSCULAR HEMOGLOBIN 30.5 pg (27.0-33.0); MEAN CORPUSCULAR HGB CONC 32.8 g/dl (32.0-36.5); MONO # 0.7 10^3/uL (0.0-0.8); MONO % 7.8 % (2.0-8.0); NEUTROPHILS # 4.8 10^3/uL (1.5-8.5); NEUTROPHILS % 50.7 % (36.0-66.0); PLATELET COUNT, AUTOMATED 223 10^3/uL (150-450); RED BLOOD COUNT 4.56 10^6/uL (4.30-6.10); WHITE BLOOD COUNT 9.5 10^3/uL (4.0-10.0)
[2023-03-28 15:15] LABS: CREATININE, URINE 129.5 MG/DL
[2023-03-28 15:16] LABS: MAU/CREAT RATIO 2.3 MCG/MG (0.0-30.0)
[2023-03-28 15:18] LABS: ALBUMIN 3.8 G/DL (3.2-5.2); BILIRUBIN,TOTAL 0.2 MG/DL (0.3-1.2); CHOLESTEROL RISK RATIO 4.81 (<5); CREATININE FOR GFR 1.38 MG/DL (0.70-1.30); GLOMERULAR FILTRATION RATE 57.6 (>56); HDL CHOLESTEROL 29.1 MG/DL (>40); LDL CHOLESTEROL 82.1 MG/DL (<100); NON-HDL-C 110.9 MG/DL; POTASSIUM SERUM 4.6 MMOL/L (3.5-5.1); THYROID STIMULATING HORMONE 0.63 uIU/ML (0.55-4.78); TOTAL PROTEIN 7.5 G/DL (5.7-8.2)
[2023-03-28 15:19] LABS: TOTAL 25(OH) VITAMIN D 11.4 NG/ML (20.0-100.0)
[2023-03-28 17:28] LABS: HEMOGLOBIN A1c 6.1 % (4.0-6.0)
== END ==
LOC: M SFHCADAM 08:50
PROVIDERS: ATTEND Physician Assistant Medical
DX: E11.51 Type 2 diabetes mellitus with diabetic peripheral angiopathy without gangrene (principal); E78.2 Mixed hyperlipidemia; K76.0 Fatty (change of) liver, not elsewhere classified

== ENCOUNTER → 2023-11-20 | Outpatient (REF) | payer OTHER ==
[~2023-11-20] MED LIST changes: +DOXY-440 PO; -DOXY-444 PO; -DOXY150C3 PO; +DOXY150C5 PO
[2023-11-20 13:33] LABS: BASO # 0.1 10^3/uL (0.0-0.2); BASO % 0.9 % (0.0-1.0); EOS # 0.2 10^3/uL (0.0-0.5); EOS % 2.4 % (0.0-3.0); HEMATOCRIT 40.8 % (42.0-52.0); HEMOGLOBIN 13.1 g/dl (13.5-17.5); LYMPH # 2.8 10^3/uL (1.5-5.0); LYMPH % 30.3 % (24.0-44.0); MEAN CORPUSCULAR HEMOGLOBIN 29.8 pg (27.0-33.0); MEAN CORPUSCULAR HGB CONC 32.1 g/dl (32.0-36.5); MEAN CORPUSCULAR VOLUME 92.7 fl (80.0-96.0); MONO # 0.8 10^3/uL (0.0-0.8); MONO % 8.3 % (2.0-8.0); NEUTROPHILS # 5.3 10^3/uL (1.5-8.5); NEUTROPHILS % 57.8 % (36.0-66.0); PLATELET COUNT, AUTOMATED 229 10^3/uL (150-450); WHITE BLOOD COUNT 9.2 10^3/uL (4.0-10.0)
[2023-11-20 13:38] LABS: PROSTATIC SPECIFIC AG MONITOR 0.27 NG/ML (< 4.00)
[2023-11-20 13:39] LABS: ALBUMIN 3.8 G/DL (3.2-5.2); BILIRUBIN,TOTAL 0.3 MG/DL (0.3-1.2); CALCIUM LEVEL 9.3 MG/DL (8.5-10.1); CHOLESTEROL RISK RATIO 4.22 (<5); CREATININE FOR GFR 1.76 MG/DL (0.70-1.30); GLOMERULAR FILTRATION RATE 43.3 (>56); HDL CHOLESTEROL 24.6 MG/DL (>40); LDL CHOLESTEROL 51.8 MG/DL (<100); NON-HDL-C 79.4 MG/DL; POTASSIUM SERUM 4.6 MMOL/L (3.5-5.1); TOTAL PROTEIN 7.7 G/DL (5.7-8.2)
[2023-11-20 13:43] LABS: THYROID STIMULATING HORMONE 0.293 uIU/ML (0.55-4.78); TOTAL 25(OH) VITAMIN D 17.6 NG/ML (20.0-100.0)
[2023-11-20 14:04] LABS: CREATININE, URINE 117.8 MG/DL
[2023-11-20 14:05] LABS: HEMOGLOBIN A1c 6.4 % (4.0-6.0)
[2023-11-20 14:08] LABS: MALB URINE SIEMENS < 3.0 MG/L; MAU/CREAT RATIO 2.5 MCG/MG (0.0-30.0)
== END ==
LOC: M SFHCADAM 10:09
PROVIDERS: ATTEND Physician Assistant Medical
DX: K74.60 Unspecified cirrhosis of liver (principal); E11.51 Type 2 diabetes mellitus with diabetic peripheral angiopathy without gangrene; E78.2 Mixed hyperlipidemia; K76.0 Fatty (change of) liver, not elsewhere classified; N40.1 Benign prostatic hyperplasia with lower urinary tract symptoms

== ENCOUNTER → 2023-12-04 | Outpatient (CLI) | payer OTHER | LOC: M SOG 07:24 | PROVIDERS: ATTEND Orthopaedic Surgery | DX: M47.896 Other spondylosis, lumbar region (principal) ==

== ENCOUNTER → 2023-12-04 | Outpatient (REF) | payer OTHER ==
[2023-12-04 15:25] LABS: CALCIUM LEVEL 8.9 MG/DL (8.5-10.1); CREATININE FOR GFR 1.85 MG/DL (0.70-1.30); GLOMERULAR FILTRATION RATE 40.9 (>56); POTASSIUM SERUM 4.6 MMOL/L (3.5-5.1)
== END ==
LOC: M SFHCADAM 08:17
PROVIDERS: ATTEND Physician Assistant Medical
DX: R60.0 Localized edema (principal)

== ENCOUNTER → 2023-12-12 | Outpatient (CLI) | payer OTHER | LOC: M PLAIMG 07:39 | PROVIDERS: ATTEND Orthopaedic Surgery | DX: M47.27 Other spondylosis with radiculopathy, lumbosacral region (principal); M51.360 Other intervertebral disc degeneration, lumbar region with discogenic back pain only ==

== ENCOUNTER → 2023-12-18 | Outpatient (REF) | payer OTHER ==
[2023-12-18 13:44] LABS: CALCIUM LEVEL 9.5 MG/DL (8.5-10.1); CREATININE FOR GFR 2.15 MG/DL (0.70-1.30); GLOMERULAR FILTRATION RATE 34.4 (>56); POTASSIUM SERUM 5.6 MMOL/L (3.5-5.1)
== END ==
LOC: M SFHCADAM 08:56
PROVIDERS: ATTEND Physician Assistant Medical
DX: N18.31 Chronic kidney disease, stage 3a (principal)

== ENCOUNTER → 2023-12-20 | Outpatient (CLI) | payer OTHER | LOC: M CARPUL 09:19 | PROVIDERS: ATTEND Physician Assistant Medical | DX: R60.0 Localized edema (principal) ==

== ENCOUNTER → 2024-01-03 | Outpatient (CLI) | payer OTHER | LOC: M RAD 06:28 | PROVIDERS: ATTEND Internal Medicine Critical Care Medicine | DX: Z12.2 Encounter for screening for malignant neoplasm of respiratory organs (principal); F17.210 Nicotine dependence, cigarettes, uncomplicated ==

== ENCOUNTER → 2024-02-06 | Outpatient (REF) | payer OTHER ==
[2024-02-06 15:24] LABS: CALCIUM LEVEL 10.2 MG/DL (8.5-10.1); CREATININE FOR GFR 1.58 MG/DL (0.70-1.30); GLOMERULAR FILTRATION RATE 49.1 (>56); POTASSIUM SERUM 6.4 MMOL/L (3.5-5.1)
== END ==
LOC: M SFHCADAM 08:33
PROVIDERS: ATTEND Physician Assistant Medical
DX: I10 Essential (primary) hypertension (principal)

== ENCOUNTER → 2024-02-10 | Outpatient (REF) | payer OTHER ==
[2024-02-10 13:38] LABS: CALCIUM LEVEL 8.9 MG/DL (8.5-10.1); CREATININE FOR GFR 2.05 MG/DL (0.70-1.30); GLOMERULAR FILTRATION RATE 36.3 (>56); POTASSIUM SERUM 5.2 MMOL/L (3.5-5.1)
== END ==
LOC: M SFHCADAM 08:16
PROVIDERS: ATTEND Physician Assistant Medical
DX: E87.5 Hyperkalemia (principal)

== ENCOUNTER → 2024-02-24 | Outpatient (REF) | payer OTHER ==
[2024-02-24 14:40] LABS: CALCIUM LEVEL 9.3 MG/DL (8.5-10.1); CREATININE FOR GFR 1.75 MG/DL (0.70-1.30); GLOMERULAR FILTRATION RATE 43.6 (>56); POTASSIUM SERUM 4.8 MMOL/L (3.5-5.1)
== END ==
LOC: M SFHCADAM 07:25
PROVIDERS: ATTEND Physician Assistant Medical
DX: N18.31 Chronic kidney disease, stage 3a (principal)

== ENCOUNTER → 2024-04-21 | Outpatient (CLI) | payer OTHER | LOC: M RAD 07:19 | PROVIDERS: ATTEND Physician Assistant Medical | DX: K74.60 Unspecified cirrhosis of liver (principal); K76.0 Fatty (change of) liver, not elsewhere classified ==

== ENCOUNTER → 2024-06-17 | Outpatient (REF) | payer OTHER ==
[2024-06-17 17:40] LABS: HEMOGLOBIN A1c 6.4 % (4.0-6.0)
[2024-06-17 17:49] LABS: ALBUMIN 3.5 G/DL (3.2-5.2); ALKALINE PHOSPHATASE 114 U/L (40-129); ALT/SGPT 52 U/L (7.0-40); AST/SGOT 40 U/L (<34); BILIRUBIN,TOTAL 0.3 MG/DL (0.3-1.2); BLOOD UREA NITROGEN 18 MG/DL (9-23); CALCIUM LEVEL 8.8 MG/DL (8.5-10.1); CARBON DIOXIDE LEVEL 33 MMOL/L (20-31); CHLORIDE LEVEL 99 MMOL/L (98-107); CHOLESTEROL LEVEL 164 MG/DL (<200); CHOLESTEROL RISK RATIO 6.23 (<5); CREATININE FOR GFR 1.42 MG/DL (0.70-1.30); GLOMERULAR FILTRATION RATE 58.7 (>56); GLUCOSE, FASTING 137 MG/DL (60-100); HDL CHOLESTEROL 26.3 MG/DL (>40); LDL CHOLESTEROL 97.7 MG/DL (<100); NON-HDL-C 137.7 MG/DL; POTASSIUM SERUM 4.3 MMOL/L (3.5-5.1); SODIUM LEVEL 137 MMOL/L (136-145); TOTAL PROTEIN 7.4 G/DL (5.7-8.2); TRIGLYCERIDES LEVEL 200 MG/DL (<150)
== END ==
LOC: M SFHCADAM 11:11
PROVIDERS: ATTEND Physician Assistant Medical
DX: E78.2 Mixed hyperlipidemia (principal); K74.60 Unspecified cirrhosis of liver; E66.01 Morbid (severe) obesity due to excess calories; E11.51 Type 2 diabetes mellitus with diabetic peripheral angiopathy without gangrene

== ENCOUNTER 2024-09-07 09:32 | Outpatient (RCR) | payer OTHER ==
[~2024-09-07 09:32] MED LIST changes: +LISI40TA10 PO; -LISI40TA4 PO
== END 2024-09-17 ==
LOC: M PT 09:32
PROVIDERS: ATTEND Physician Assistant Medical
DX: I89.0 Lymphedema, not elsewhere classified (principal)

== ENCOUNTER → 2024-11-18 | Outpatient (CLI) | payer OTHER | LOC: M EKG 12:40 | PROVIDERS: ATTEND Physician Assistant | DX: I48.91 Unspecified atrial fibrillation (principal); Z53.9 Procedure and treatment not carried out, unspecified reason ==

== ENCOUNTER → 2024-12-17 | Outpatient (REF) | payer OTHER, MEDICAID ==
[2024-12-17 14:28] LABS: ALT/SGPT 32.0 U/L (7.0-40); AST/SGOT 33.0 U/L (<34); CALCIUM LEVEL 9.1 MG/DL (8.5-10.1); CARBON DIOXIDE LEVEL 32.0 MMOL/L (20-31); CHLORIDE LEVEL 101.0 MMOL/L (98-107); CHOLESTEROL LEVEL 97.0 MG/DL (<200); CHOLESTEROL RISK RATIO 3.33 (<5); CREATININE FOR GFR 1.51 MG/DL (0.70-1.30); GLOMERULAR FILTRATION RATE 54.6 (>56); LDL CHOLESTEROL 46.3 MG/DL (<100); NON-HDL-C 67.9 MG/DL; POTASSIUM SERUM 4.5 MMOL/L (3.5-5.1); SODIUM LEVEL 140.0 MMOL/L (136-145); TRIGLYCERIDES LEVEL 108.0 MG/DL (<150)
== END ==
LOC: M LAB REF 14:03
PROVIDERS: ATTEND Physician Assistant
DX: E78.5 Hyperlipidemia, unspecified (principal)

== ENCOUNTER → 2024-12-17 | Outpatient (REF) | payer OTHER ==
[2024-12-17 13:47] LABS: BASO # 0.1 10^3/uL (0.0-0.2); BASO % 0.5 % (0.0-1.0); EOS # 0.3 10^3/uL (0.0-0.5); EOS % 2.4 % (0.0-3.0); LYMPH # 3.4 10^3/uL (1.5-5.0); LYMPH % 30.6 % (24.0-44.0); MONO # 0.7 10^3/uL (0.0-0.8); MONO % 6.4 % (2.0-8.0); NEUTROPHILS # 6.6 10^3/uL (1.5-8.5); NEUTROPHILS % 59.7 % (36.0-66.0); PLATELET COUNT, AUTOMATED 250 10^3/uL (150-450)
[2024-12-17 13:56] LABS: ALT/SGPT 33 U/L (7.0-40); AST/SGOT 34 U/L (<34); CALCIUM LEVEL 9.1 MG/DL (8.5-10.1); CARBON DIOXIDE LEVEL 30 MMOL/L (20-31); CHLORIDE LEVEL 103 MMOL/L (98-107); CHOLESTEROL LEVEL 99 MG/DL (<200); CHOLESTEROL RISK RATIO 3.41 (<5); CREATININE FOR GFR 1.52 MG/DL (0.70-1.30); FREE T4 1.21 NG/DL (0.89-1.76); GLOMERULAR FILTRATION RATE 54.1 (>56); LDL CHOLESTEROL 47.8 MG/DL (<100); NON-HDL-C 70.0 MG/DL; POTASSIUM SERUM 4.5 MMOL/L (3.5-5.1); SODIUM LEVEL 142 MMOL/L (136-145); TOTAL 25(OH) VITAMIN D 48.2 NG/ML (20.0-100.0); TRIGLYCERIDES LEVEL 111 MG/DL (<150)
[2024-12-17 14:07] LABS: ESTIMATED AVERAGE GLUCOSE 131.0 MG/DL (60-110)
== END ==
LOC: M SFHCADAM 07:23
PROVIDERS: ATTEND Physician Assistant Medical
DX: K74.60 Unspecified cirrhosis of liver (principal); N18.31 Chronic kidney disease, stage 3a; E11.51 Type 2 diabetes mellitus with diabetic peripheral angiopathy without gangrene; E55.9 Vitamin D deficiency, unspecified; E78.5 Hyperlipidemia, unspecified